=== PATIENT | male | born 1985 | race Caucasian/White ===

== ENCOUNTER 2017-06-06 19:43 | Emergency (ER) | payer BC, SELFPAY ==
[2017-06-06] VITALS (7 sets, daily range): BP systolic 105–130; BP diastolic 66–89; PULSE 82–135; RESP 17–38; TEMP 36.1; O2SAT 96–98; BMI 26.4
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
--- NOTE | 2017-06-06 20:01 | EKG12_ITS ---
Test Reason : TRAUMA Blood Pressure : / mmHG Vent. Rate : 125 BPM Atrial Rate : 125 BPM P-R Int : 132 ms QRS Dur : 096 ms QT Int : 326 ms P-R-T Axes : 078 084 064 degrees QTc Int : 470 ms Sinus tachycardia Otherwise normal ECG Confirmed by RUFINA ROMEO MD ([id number]), health editor TAMAR SLADE ([id number]) on 06/09/2017 4:08:29 PM Referred By: UGO Confirmed By:RUFINA ROMEO MD
--- NOTE | 2017-06-06 20:05 | ED.RN ---
NO OLD EKG'S IN MUSE
[2017-06-06] MEDS: 0.9% Normal Saline 1,000 ML 150 ML IV (20:07)
[2017-06-06] MEDS: fentaNYL 100 MCG/2 ML Ampul 50 MCG IV ×2 (20:07→20:58)
[2017-06-06] MEDS: Ondansetron 4 MG/2 ML Vial IV (20:08)
[2017-06-06 20:12] LABS: Absolute Lymphocyte Count 7.15 X10^3/ul (0.83-4.51); Absolute Neutrophil Count 9.6 X10^3/uL (2.0-7.7); Basophil# 0.14 X10^3/uL; Basophil% 0.7 % (0-1); Differential Indicated SCAN CRITERIA MET; Eosinophil# 0.36 X10^3/uL; Eosinophils% 1.9 % (0-5); Hematocrit 52.2 % (40-54); Hemoglobin 16.7 g/dl (13.0-16.5); Lymphocyte # 7.15 X10^3/ul (4.0); Lymphocyte % 37.5 % (19-41); Mean Corpuscular Hgb 32.4 pg (27.0-32.0); Mean Corpuscular Volume 101.2 fL (80-94); Mean Platelet Vol. 11.3 fl (6.2-12.0); Monocyte# 1.44 X10^3/uL; Monocyte% 7.6 % (0-10); Neutrophil # 9.62 X10^3/uL (2.7-7.7); Neutrophil % 50.5 % (47-70); POSITIVE COUNT NO; POSITIVE DIFFERENTIAL YES; POSITIVE MORPHOLOGY YES; Platelet Count 348 K/mm3 (150-450); RBC Distribution Width CV 12.6 % (11.6-14.6); RBC Distribution Width SD 46.9 fl (35.1-43.9); Red Blood Count 5.16 M/mm3 (4.6-6.2); White Blood Count 19.1 K/mm3 (4.4-11.0)
[2017-06-06 20:14] LABS: International Normalized Ratio 1.3; Prothrombin Time (Protime)PT. 16.4 SECONDS (11.7-14.9)
[2017-06-06 20:15] LABS: Partial Thromboplast Time 27.9 Seconds (24.1-36.2)
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
[2017-06-06 20:23] LABS: Anion Gap 35 (5-15); BUN 14 mg/dL (7-18); BUN/Creat Ratio 7.1 RATIO (10-20); Calcium,Total 9.2 mg/dL (8.5-10.1); Chloride 97 mmol/L (98-107); Creatinine, Serum 1.98 mg/dL (0.70-1.30); EST Glomerular Filtration Rate 42 mL/min (>60); Est Glom Filt Rate - Afr Amer 51 mL/min (>60); Estimated Creatinine Clearance 50.08 ml/min; Glucose 216 mg/dL (74-106); Sodium Level 137 mmol/L (136-145)
--- NOTE | 2017-06-06 20:23 | ED.RN ---
LAB CALLS WITH CRITICAL RESULT, CO2 IS 5, DR. ARIZMENDI MADE AWARE.
[2017-06-06 20:32] LABS: Differential Comment SCANNED
[2017-06-06 22:16] LABS: Color, Urine Yellow (Yellow); Glucose, Dipstick Normal (Normal); Ketone-Dipstick 5 mg/dl (Negative); Leukocyte Esterase-Dipstick Negative /ul (Negative); Nitrite-Dipstick Negative (Negative); Occult Blood-Urine 50 /ul (Negative); Protein-Dipstick 30 mg/dl (Negative); Urine Bilirubin Dipstick Negative (Negative); Urine Clarity Sl. Cloudy (Clear); Urine Urobilinogen Normal (Normal)
[2017-06-06 22:23] LABS: Amphetamine Urine VISTA POSITIVE (<1000 ng/mL); Barbiturate Urine VISTA NEGATIVE (< 200 ng/mL); Benzodiazepine Urine VISTA NEGATIVE (< 200 ng/mL); Cocaine Urine VISTA POSITIVE (< 300 ng/mL); Ecstacy Urine VISTA NEGATIVE (< 500 ng/mL); Methadone Urine VISTA NEGATIVE (< 300 ng/mL); PCP Urine VISTA NEGATIVE (< 25 ng/mL); THC Urine VISTA POSITIVE (< 50 ng/mL); Vista UDS pH Range 5
[2017-06-06 22:25] LABS: Mucous, Urine 1+ /hpf (<or=2+); Red Blood Cells-Urine 0-5 SEEN /hpf (0-5); Squamous Epithelial Cells - UA 0-5 SEEN /hpf (0-5); White Blood Cells 0-5 SEEN /hpf (0-5)
[2017-06-06 22:26] LABS: Bacteria RARE /hpf (None Seen)
== END 2017-06-06 23:31 | disposition home or self-care (01) ==
PROVIDERS: Emergency Provider Emergency Medicine; Family Provider Family Medicine; PCP Family Medicine
DX: S29.012A Strain of muscle and tendon of back wall of thorax, initial encounter (principal); S20.412A Abrasion of left back wall of thorax, initial encounter; S20.411A Abrasion of right back wall of thorax, initial encounter; N28.9 Disorder of kidney and ureter, unspecified; F19.90 Other psychoactive substance use, unspecified, uncomplicated; F10.10 Alcohol abuse, uncomplicated; Y90.2 Blood alcohol level of 40-59 mg/100 ml; V86.55XA Driver of 3- or 4- wheeled all-terrain vehicle (ATV) injured in nontraffic accident, initial encounter; Y93.89 Activity, other specified; Y92.009 Unspecified place in unspecified non-institutional (private) residence as the place of occurrence of the external cause; Y99.9 Unspecified external cause status; F03.90 Unspecified dementia, unspecified severity, without behavioral disturbance, psychotic disturbance, mood disturbance, and anxiety; F41.9 Anxiety disorder, unspecified; Z72.0 Tobacco use
CPT/HCPCS: 70450; 71260; 72125; 72128; 72131; 74177; 80048; 80307; 80320; 81001; 85025; 85610; 85730; 93005; 96361; 96374; 96375; 96376; 99285; J7030; Q9967; G0480; J2405

== ENCOUNTER 2018-06-14 13:14 | Inpatient (IN) | payer BC, SELFPAY ==
[2018-06-14] VITALS (11 sets, daily range): BP systolic 95–138; BP diastolic 68–94; PULSE 65–110; RESP 12–18; TEMP 36.8–37.6; O2SAT 94–100; BMI 23.5; BMI 24.3
--- NOTE | 2018-06-14 13:57 | ED.DCSUM_ITS ---
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 Last episode of pancreatitis 7 8 years ago. He presents with severe abdominal pain that is predominantly on the left side with 2 loose watery stools. He did not notice blood or mucus in the stool. He denies food intolerance. He does complain of thirst, dry mouth and orthostatic symptoms. He does report subjective fever. He denies headache, visual, ocular auditory symptoms. He denies cardiac respiratory symptoms. He denies dysuria, frequency, urgency or hematuria. He denies rash. Denies myalgias arthralgias. No ill contacts to his knowledge. Past Medical History - Allergies and Home Meds Allergies/Adverse Reactions: Allergies No Known Allergies Allergy (Verified 06/14/18 13:17) Primary Care Physician: Newton Herbert MD [Primary Care Provider] - Prior records reviewed: Yes Surgical History: no surgical history Lives: Spouse/ Significant Other Smoking Status: Current every day smoker Alcohol: Rare Drugs: None Review of Systems General: Reports: Chills, Fever, Subjective. Denies: Malaise, Sweats Eyes: Denies: Visual changes - bilaterally, Blurred Vision - bilaterally, Diplopia ENT: Denies: Bilateral ear pain, Rhinorrhea, Sore throat Cardiovascular: Denies: Chest pain, Palpitations Respiratory: Denies: Dyspnea, Cough, Dyspnea on exertion Gastrointestinal: Reports: Abdominal pain, Nausea, Diarrhea. Denies: Constipation, Melena, Hematochezia Genitourinary: Denies: Dysuria, Hematuria, Frequency Musculoskeletal: Denies: Myalgias, Arthralgias, Back pain, Extremity Pain Skin: Denies: Rash, Wounds Neurological: Denies: Headache, Weakness, Numbness Endocrine: Denies: Polyuria, Polydipsia Hematologic: Denies: Easy bruising Physical Exam Vital Signs/Narrative: Vital Signs Temp Pulse Resp BP Pulse Ox 06/14/18 13:15 99.6 F H 110 H 18 95/72 98 Inital Vital Signs reviewed: Yes General: Well nourished, Well developed, Acute Distress Head: Normocephalic, Atraumatic Eyes: Perrl, EOMI. Negative for: Scleral icterus ENT: No rhinorrhea, Dry mucous membranes Neck: Supple, Nontender Cardiovascular: Regular rate, Regular rhythm, No murmurs Respiratory: No distress, CTA bilaterally, Chest nontender Abdomen: No masses, Tender, Hypoactive bowel sounds, - - Abdomen is distended and tympanitic. There is no guarding or rebound tenderness.. Negative for: Nontender, Nondistended, Normal bowel sounds, Guarding, Rebound tenderness, Hyperactive bowel sounds, Hepatomegaly, Splenomegaly, Mass, Pulsatile mass, Ventral hernia Rectal: Deferred Back: Nontender, Normal Inspection Extremities: Nontender, No edema Skin: Normal color, No rash Neurological: Alert, Oriented x3, Cranial nerves II-XII grossly intact, Normal Strength, Normal Sensation Psychological: Normal affect, Normal Mood Diagnostic/Tx/Re-eval 06/14/18 15:01 Acute Abdomen Inc Chest [RAD] Stat Laboratory Results 06/14/18 14:15 Sodium 137 Potassium 3.6 Chloride 106 Carbon Dioxide 24.0 Anion Gap 7 BUN 10 Creatinine 1.18 Estim Creat Clear Calc 83.25 Est GFR (MDRD) Af Amer 91 Est GFR (MDRD) Non-Af 75 BUN/Creatinine Ratio 8.5 L Glucose 116 H Calcium 8.6 Lipase 152 Abdominal series is consistent with obstruction. Patient asked if he had a preference for surgeon. He requested an oral surgeon. Dr. Vieyra was paged. We will add on additional blood work. Patient was reexamined he does have a bulge left inguinal area with Valsalva maneuver. This does not cause him discomfort. - Medical Decision Making With history of nausea, diarrhea suspect viral illness. With no past medical history of surgery and the fact that his last watery stool was 1.5 hours ago doubt obstruction. Will treat with IV fluids, antiemetic and antispasmodic. Since she is only had 2 loose watery stools Imodium was not prescribed. Patient was reassessed at 1455. He is moaning on the examination cot. He was reexamined. His abdomen is distended tympanitic with significant tenderness. Will obtain abdominal series to evaluate for evidence of obstruction which would suggest internal band or hernia Obtained consultation with general surgery, Dr. Axel Cheung. Spoke with Dr. Vieyra at [phone]. He requested a CAT scan with p.o. and IV contrast. Disposition pending CT results. ED Disposition - Plan for ED Patient: Disposition: [facility] Diagnosis: Bowel obstruction, Reducible left inguinal hernia Referrals: Newton Herbert MD [Primary Care Provider] -
[2018-06-14] MEDS: Ondansetron 4 MG/2 ML Vial IV ×2 (14:27→19:06)
[2018-06-14] MEDS: Dicyclomine 10 MG Capsule 20 MG PO (14:27)
[2018-06-14] MEDS: 0.9% Normal Saline 1,000 ML 1000 ML IV (14:28)
[2018-06-14 14:40] LABS: Anion Gap 7 (5-15); BUN 10 mg/dL (7-18); BUN/Creat Ratio 8.5 RATIO (10-20); Calcium,Total 8.6 mg/dL (8.5-10.1); Chloride 106 mmol/L (98-107); Creatinine, Serum 1.18 mg/dL (0.70-1.30); EST Glomerular Filtration Rate 75 mL/min (>60); Est Glom Filt Rate - Afr Amer 91 mL/min (>60); Estimated Creatinine Clearance 83.25 ml/min; Glucose 116 mg/dL (74-106); Lipase 152 U/L (73-393); Potassium 3.6 mmol/L (3.5-5.1); Sodium Level 137 mmol/L (136-145)
--- NOTE | 2018-06-14 15:01 | RAD_ITS ---
STUDY: X-RAY - ACUTE ABDOMINAL SERIES REASON FOR EXAM: Male, 33 years old. Abdominal pain and distention TECHNIQUE: Single view of the chest. Supine, decubitus view(s) of the abdomen were obtained. COMPARISON: CT abdomen and pelvis 06/06/2017 FINDINGS: The lungs are clear and expanded. Normal size heart. Normal mediastinum and parvez. Normal visualized pulmonary arteries. Normal visualized aortic arch and descending thoracic aorta. Air filled small bowel loops are diffusely distended throughout the abdomen and demonstrate air-fluid levels on decubitus view suggesting a distal small bowel obstruction. There is air within normal caliber large bowel and rectum. There is a large amount of debris in the stomach. There is no pneumoperitoneum. The soft tissue structures of the abdomen and pelvis are unremarkable. Normal visualized osseous structures. RAD/Acute Abdomen Inc Chest IMPRESSION: Findings are suggestive of a distal small bowel obstruction. There is air within normal caliber large bowel and rectum noted. CT abdomen and pelvis with oral and IV contrast is recommended. Electronically Signed: Priscilla Muro, at 15:47 EDT Tel , Service support ,
--- NOTE | 2018-06-14 15:44 | CT_ITS ---
STUDY: CT ABDOMEN AND PELVIS WITH CONTRAST REASON FOR EXAM: Male, 33 years old. Distention RADIATION DOSAGE (If Supplied By Facility): CTDIvol = ( 10.93 ) mGy, DLP = ( 471.34 ) mGycm TECHNIQUE: Transaxial images were obtained from the dome of the diaphragm to the symphysis pubis without oral contrast. 100ML ml of Isovue 370 contrast was administered. Sagittal and coronal images were reconstructed. Individualized dose optimization techniques were used for this CT. COMPARISON: 06/06/2017 FINDINGS: The visualized lung bases are clear. The visualized portions of the heart and pericardium are within normal limits. There are no calcified gallstones present. The liver is within normal limits. There are no suspicious hepatic lesions. The spleen is normal in size. The pancreas is within normal limits. The adrenal glands are within normal limits. There are no renal or ureteral stones. There is no hydronephrosis. There are no focal renal lesions. Normal visualized stomach. There are distended loops of proximal and mid small bowel with collapsed loops noted distally. This is consistent with a small bowel obstruction. The transition point appears to be in the left lower quadrant (image 66 series 2). The colon is mildly dilated, as well. This may be due to ileus. The appendix is visualized and appears normal. The aorta is normal in caliber. There is a small amount of free fluid. There is no free air, fluid collection or lymphadenopathy. There are no destructive osseous lesions. CT/Abdomen/Pelvis WITH Contrast IMPRESSION: Small bowel obstruction with the transition point likely in the right lower quadrant. Mildly distended colon which is likely due to ileus. Normal appendix. Small amount of ascites. No free air or fluid collection. Electronically Signed: Tahir Hughes, at 18:02 EDT Tel , Service support ,
[2018-06-14 15:53] LABS: Absolute Lymphocyte Count 0.65 X10^3/ul (0.83-4.51); Absolute Neutrophil Count 7.6 X10^3/uL (2.0-7.7); Basophil# 0.02 X10^3/uL; Basophil% 0.2 % (0-1); Eosinophil# 0.01 X10^3/uL; Eosinophils% 0.1 % (0-5); Hematocrit 44.8 % (40-54); Lymphocyte # 0.65 X10^3/ul (4.0); Lymphocyte % 7.3 % (19-41); Mean Corp Hgb Conc 33.5 g/gl (32-36); Mean Corpuscular Hgb 30.5 pg (27.0-32.0); Mean Corpuscular Volume 91.2 fL (80-94); Mean Platelet Vol. 10.8 fl (6.2-12.0); Monocyte# 0.65 X10^3/uL; Monocyte% 7.3 % (0-10); POSITIVE COUNT NO; POSITIVE DIFFERENTIAL NO; POSITIVE MORPHOLOGY NO; Platelet Count 216 K/mm3 (150-450); RBC Distribution Width CV 12.6 % (11.6-14.6); Red Blood Count 4.91 M/mm3 (4.6-6.2); White Blood Count 8.9 K/mm3 (4.4-11.0)
[2018-06-14] MEDS: Morphine 4 MG/ML Syringe IV ×3 (16:04→22:41)
[2018-06-14 17:04] LABS: Alcohol, Blood (Medical)-Serum < 3.0 mg/dL
[2018-06-14 18:02] LABS: Amphetamine Urine VISTA POSITIVE (<1000 ng/mL); Barbiturate Urine VISTA NEGATIVE (< 200 ng/mL); Benzodiazepine Urine VISTA NEGATIVE (< 200 ng/mL); Cocaine Urine VISTA NEGATIVE (< 300 ng/mL); Ecstacy Urine VISTA NEGATIVE (< 500 ng/mL); Methadone Urine VISTA NEGATIVE (< 300 ng/mL); PCP Urine VISTA NEGATIVE (< 25 ng/mL); THC Urine VISTA POSITIVE (< 50 ng/mL); Vista UDS pH Range 5
--- NOTE | 2018-06-14 19:51 | HP.PCM_ITS ---
History of Present Illness Date of Admission: 06/14/18 Chief Complaint: abdominal pain. nausea and vomiting The patient is a 33 year old M with a one day history of abdominal pain, nausea. He presented to the [facility] ER with athe above complaints. WBC count was normal with a left shift. CT scan demonstrated a transition point the the LLQ. THe patient had a prior diagnostic laparoscopy to rule out inguinal hernia in 2003. Past Medical History Allergies No Known Allergies Allergy (Verified 06/14/18 13:17) Surgical History: - - diagnostic laparoscopy Lives: Spouse/ Significant Other Smoking Status: Current every day smoker Alcohol: Rare Drugs: Marijuana, - - methamphetamines, opiates on tox screen today, Review of Systems Constitutional: Reports: Anorexia HEENT: Denies: Head Aches, Sinus Congestion, Sinus Drainage Cardiovascular: Denies: Chest Pain, Palpitations Respiratory: Denies: Cough, Shortness of breath at rest, Sputum production Gastrointestinal: Reports: Abdominal Pain, Nausea, Vomiting Genitourinary: Denies: Dysuria Musculoskeletal: Denies: Joint Pain, Joint Tenderness Skin: Denies: Rash, Wounds Neurological: Denies: Numbness, Tingling, Focal weakness Psychiatric: Denies: Anxiety, Depression, Homicidal Ideations, Suicidal Ideations Hematologic/ Lymphatic: Denies: Easy Bruising, Easy Bleeding VTE Information - Inpt Only VTE Present on Admission: No VTE Mechan Device Prophylaxis: SCD's VTE Pharm Prophylaxis ordered?: No Patient Problems: Active and Suspected Problems Bowel obstruction (Acute) Reducible left inguinal hernia (Acute) - Physical Exam Vital Signs Temp Pulse Resp BP Pulse Ox 98.8 F 84 18 124/79 H 98 06/14/18 19:15 06/14/18 19:15 06/14/18 19:15 06/14/18 19:15 06/14/18 19:15 Oxygen Delivery Method Room Air Weight: 68.039 kg Body Mass Index (BMI) 23.5 Laboratory Tests Past 24 Hrs 06/14/18 06/14/18 06/14/18 14:15 14:15 16:30 WBC 8.9 RBC 4.91 Hgb 15.0 Hct 44.8 MCV 91.2 MCH 30.5 MCHC 33.5 RDW 12.6 RDW Differential 42.0 Plt Count 216 MPV 10.8 Immature Gran % (Auto) 0.100 Neut % (Auto) 85.0 H Lymph % (Auto) 7.3 L [place] % (Auto) 7.3 Eos % (Auto) 0.1 Baso % (Auto) 0.2 Absolute Neuts (auto) 7.6 Absolute Lymphs (auto) 0.65 L Total Counted Not Reportable Sodium 137 Potassium 3.6 Chloride 106 Carbon Dioxide 24.0 Anion Gap 7 BUN 10 Creatinine 1.18 Estim Creat Clear Calc 83.25 Est GFR (MDRD) Af Amer 91 Est GFR (MDRD) Non-Af 75 BUN/Creatinine Ratio 8.5 L Glucose 116 H Calcium 8.6 Lipase 152 Urine Opiates Screen Urine Methadone Screen Ur Barbiturates Screen Ur Phencyclidine Scrn Ur Amphetamines Screen U Methamphetamin-MDMA U Benzodiazepines Scrn Urine Cocaine Screen U Cannabinoids Screen Ur Drug Screen Comment Ethyl Alcohol < 3.0 06/14/18 17:35 WBC RBC Hgb Hct MCV MCH MCHC RDW RDW Differential Plt Count MPV Immature Gran % (Auto) Neut % (Auto) Lymph % (Auto) [place] % (Auto) Eos % (Auto) Baso % (Auto) Absolute Neuts (auto) Absolute Lymphs (auto) Total Counted Sodium Potassium Chloride Carbon Dioxide Anion Gap BUN Creatinine Estim Creat Clear Calc Est GFR (MDRD) Af Amer Est GFR (MDRD) Non-Af BUN/Creatinine Ratio Glucose Calcium Lipase Urine Opiates Screen POSITIVE H Urine Methadone Screen NEGATIVE Ur Barbiturates Screen NEGATIVE Ur Phencyclidine Scrn NEGATIVE Ur Amphetamines Screen POSITIVE H U Methamphetamin-MDMA NEGATIVE U Benzodiazepines Scrn NEGATIVE Urine Cocaine Screen NEGATIVE U Cannabinoids Screen POSITIVE H Ur Drug Screen Comment Ethyl Alcohol Assessment/Plan All Active Problems Pancreatitis, alcoholic, acute (Resolved) Bowel obstruction (Acute) Reducible left inguinal hernia (Acute) ACUTE ABDOMINAL PAIN, SMALL BOWEL WITH TRANSITION POINT LLQ I plan to perform an exploratory laparotomy with anticipation of a lysis of adhesions versus early closed loop. We discussed the possibility of bowel resection. Given his history of prior diagnostic laparoscopy for rule out inguinal hernia, the obstruction does not seem to be at a site near that procedure area and that is the concern. The patient understands the risks, benefits, possible complications and consents. He will be given zosyn and will have SCD's. We discuss his toxicology. He was given opiates prior to tox screen.
--- NOTE | 2018-06-14 20:00 | MISC_PTH ---
PATIENT: VICK RIGGINS Jr. LOC: MS3 U#:[id number] AGE/SX: 33/M ROOM: MS321 RE06/14/[address]: Dr. Axel Cheung MD : 1985 BED: 1 DIS: 06/19/2018 SPEC #: [id number] RECD: 06/15/18 07:26 STATUS: [place] REQ #: [id number] KASANDRA: 06/14/18 20:[address]: Axel Cheung DEPT: SURGICAL PATHOLOGY RECD BY: Jluis Garg ENTERED: 06/15/18 09:50 SP TYPE: MISC OTHR DR: Dr. 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 AM:yumiko 06/16/18 MICROSCOPIC DESCRIPTION Slides are reviewed. GROSS DESCRIPTION Received in fixative is one container labeled with the patient's name and designated diverticulum. The specimen consists of a saccular segment of mucosa with attached fatty tissue measuring 1.5 cm in length and 1.2 cm in diameter. Serial sections do not reveal mass lesions. The specimen is sectioned and totally submitted in one cassette. / AM:yumiko 06/15/18 TC:5 CPT: 63678
--- NOTE | 2018-06-14 21:10 | PCM.OPRPT ---
Report of Operation Date of Procedure: 06/14/18 Pre-Operative Diagnosis: small bowel obstruction -transition point in LLQ Post-Operative Diagnosis: small bowel obstruction -transition point in LLQ, small bowel diverticulum near transition Surgery/Procedure Performed:: exploratory laparotomy, small bowel diverticulectomy (? meckel's), fire suppression captain: Rachna Allison Type of Anesthesia:: General Anesthesiologist: Larissa Beatty [id number] Specimen's removed: diverticulum Drains: NG Estimated Blood Loss (mL): 100 Fluids Replaced: 1000 Description of Procedure: The patient was brought to the operating suite. Sign in was performed verifying patient, site, procedure, position, and DVT prophylaxis with SCDs. Patient received Zosyn 4.5 g antibiotic prophylaxis. Following induction of general anesthetic, the patient?s abdomen was prepped and draped in the usual fashion. Timeout was performed verifying patient, site, position. A linear incision was made in the midline above and below the umbilicus Dissection carried down to the posterior sheath. The peritoneal cavity was carefully entered and then extension of the incision was made both sharply and using electrocautery. The patient was found to have distended loops of small bowel without signs of intra-abdominal fluid or intestinal contents. The colon was packed down and retractors placed to improve visualization. Attempts to lift up the small bowel did note a degree of tenting in the left lower quadrant as expected on the CT scan. At this point, the small bowel was run from the ligament of Treitz distally. While there was no exact transition point there was a transition from more dilated bowel more collapsed bowel. This transition point seemed to be at the location as expected on the CT scan and if interested there was a diverticulum noted in this area. This was felt about 6 feet from the ileocecal valve so I doubt this was truly a Meckel's diverticulum. Nonetheless this was located near the point of transition on CT scan and seemed to be stuck to the posterior peritoneal cavity. The bowel was again run without additional obvious findings. At this point the blood supply of the diverticulum was divided with electrocautery and then the diverticulum was sharply amputated. The defect in the bowel wall was closed transversely in 2 layers using a 3-0 Vicryl suture deeply and then interrupted 3-0 silk sutures. NG tube placed by the anesthesiologist was was verified to be nicely in the stomach by palpation. . After all sponge and instrument counts were correct. PDS suture was used to close the fascia in running fashion. The subcutaneous tissues were irrigated skin was closed with bryson. Dressing was applied. - Admit VTE Documentation VTE Present on Admission: No VTE Mechan Device Prophylaxis: SCD's VTE Pharm Prophylaxis ordered?: No
[2018-06-15 00:10] VITALS: BP 112/72; PULSE 70; RESP 16; TEMP 37.2; O2SAT 96
[2018-06-15 01:59] VITALS: BP 118/68; PULSE 70; RESP 16; TEMP 37.1; O2SAT 95
[2018-06-15] MEDS: Morphine 4 MG/ML Syringe IV ×8 (03:10→22:53)
[2018-06-15] MEDS: 0.9% NaCl Peripheral Flush Adult/Peds IV ×5 (03:10→17:59)
[2018-06-15] MEDS: Lactated Ringers 1,000 ML 100 ML IV ×2 (03:20→16:01)
--- NOTE | 2018-06-15 05:10 | NURSING ---
pt refusing to get out of bed or to ambulate. Wants NG tube removed. Pt was educated on the importance of getting out of bed and ambulating. also educated on the need for the NG tube. Pt voiced understanding.
[2018-06-15 06:00] LABS: Absolute Lymphocyte Count 0.73 X10^3/ul (0.83-4.51); Absolute Neutrophil Count 13.2 X10^3/uL (2.0-7.7); Basophil# 0.01 X10^3/uL; Basophil% 0.1 % (0-1); Eosinophil# 0.01 X10^3/uL; Eosinophils% 0.1 % (0-5); Hematocrit 39.4 % (40-54); Hemoglobin 12.9 g/dl (13.0-16.5); Lymphocyte # 0.73 X10^3/ul (4.0); Lymphocyte % 5.1 % (19-41); Mean Corp Hgb Conc 32.7 g/gl (32-36); Mean Corpuscular Hgb 30.4 pg (27.0-32.0); Mean Corpuscular Volume 92.7 fL (80-94); Mean Platelet Vol. 10.6 fl (6.2-12.0); Monocyte% 2.8 % (0-10); Neutrophil % 91.8 % (47-70); Platelet Count 215 K/mm3 (150-450); RBC Distribution Width CV 12.6 % (11.6-14.6); RBC Distribution Width SD 42.7 fl (35.1-43.9); Red Blood Count 4.25 M/mm3 (4.6-6.2); White Blood Count 14.4 K/mm3 (4.4-11.0)
[2018-06-15 06:18] LABS: POSITIVE COUNT NO; POSITIVE DIFFERENTIAL NO; POSITIVE MORPHOLOGY NO
[2018-06-15 06:44] LABS: ALB/GLOB Ratio 0.9 RATIO (0.9-2.4); AST(SGOT) 13 U/L (15-37); Alanine Aminotransfer ALT/SGPT 14 U/L (16-61); Albumin, Serum 2.9 g/dL (3.2-5.0); Alkaline Phosphatase 47 U/L (45-117); Anion Gap 7 (5-15); BUN 10 mg/dL (7-18); BUN/Creat Ratio 8.3 RATIO (10-20); Calcium,Total 7.9 mg/dL (8.5-10.1); Chloride 110 mmol/L (98-107); EST Glomerular Filtration Rate 74 mL/min (>60); Est Glom Filt Rate - Afr Amer 90 mL/min (>60); Estimated Creatinine Clearance 79.01 ml/min; Globulin 3.3 g/dL (2.2-4.2); Glucose 131 mg/dL (74-106); Potassium 4.1 mmol/L (3.5-5.1); Protein, Total 6.2 g/dL (6.4-8.2); Sodium Level 143 mmol/L (136-145)
--- NOTE | 2018-06-15 07:43 | NURSING ---
Carolina RN on casino shift manager reported that pt has not voided since 1800 last evening 06/14 and was bladder scanned once at 0330 by Carolina for 250ml but not voided since. Carolina bladder scanned him at 0730 this morning for 482ml. Per report pt has also refused to sit in chair and walk in room or delatorre.
[2018-06-15 08:19] VITALS: BP 107/59; PULSE 84; RESP 18; TEMP 36.8; O2SAT 99
--- NOTE | 2018-06-15 09:30 | PCM.PN.SRG ---
Patient Problems: Active and Suspected Problems Bowel obstruction (Acute) Reducible left inguinal hernia (Acute) Subjective: incisional pain, - Physical Exam General: Alert, Oriented x3, Cooperative Lungs: Clear to auscultation, Normal air movement Cardiovascular: Regular rate, No murmurs Abdomen: Bowel Sounds Not Present, Tender - at incision Vital Signs Temp Pulse Resp BP Pulse Ox 98.3 F 84 18 107/59 L 99 06/15/18 08:19 06/15/18 08:19 06/15/18 08:19 06/15/18 08:19 06/15/18 08:19 Oxygen Delivery Method Room Air Weight: 70.3 kg Body Mass Index (BMI) 24.3 Intake and Output for Last 24 Hours 06/13/18 06/14/18 06/15/18 23:59 23:59 23:59 Intake Total 1500 / 1500 766 / 766 Output Total 100 / 100 Balance 1500 / 1500 666 / 666 Laboratory Tests Past 24 Hrs 06/14/18 06/14/18 06/14/18 14:15 14:15 16:30 WBC 8.9 RBC 4.91 Hgb 15.0 Hct 44.8 MCV 91.2 MCH 30.5 MCHC 33.5 RDW 12.6 RDW Differential 42.0 Plt Count 216 MPV 10.8 Immature Gran % (Auto) 0.100 Neut % (Auto) 85.0 H Lymph % (Auto) 7.3 L [place] % (Auto) 7.3 Eos % (Auto) 0.1 Baso % (Auto) 0.2 Absolute Neuts (auto) 7.6 Absolute Lymphs (auto) 0.65 L Total Counted Not Reportable Sodium 137 Potassium 3.6 Chloride 106 Carbon Dioxide 24.0 Anion Gap 7 BUN 10 Creatinine 1.18 Estim Creat Clear Calc 83.25 Est GFR (MDRD) Af Amer 91 Est GFR (MDRD) Non-Af 75 BUN/Creatinine Ratio 8.5 L Glucose 116 H Calcium 8.6 Total Bilirubin AST ALT Alkaline Phosphatase Total Protein Albumin Globulin Albumin/Globulin Ratio Lipase 152 Urine Opiates Screen Urine Methadone Screen Ur Barbiturates Screen Ur Phencyclidine Scrn Ur Amphetamines Screen U Methamphetamin-MDMA U Benzodiazepines Scrn Urine Cocaine Screen U Cannabinoids Screen Ur Drug Screen Comment Ethyl Alcohol < 3.0 06/14/18 06/15/18 06/15/18 17:35 05:10 05:10 WBC 14.4 H RBC 4.25 L Hgb 12.9 L Hct 39.4 L MCV 92.7 MCH 30.4 MCHC 32.7 RDW 12.6 RDW Differential 42.7 Plt Count 215 MPV 10.6 Immature Gran % (Auto) 0.100 Neut % (Auto) 91.8 H Lymph % (Auto) 5.1 L [place] % (Auto) 2.8 Eos % (Auto) 0.1 Baso % (Auto) 0.1 Absolute Neuts (auto) 13.2 H Absolute Lymphs (auto) 0.73 L Total Counted Not Reportable Sodium 143 Potassium 4.1 Chloride 110 H Carbon Dioxide 26.0 Anion Gap 7 BUN 10 Creatinine 1.20 Estim Creat Clear Calc 79.01 Est GFR (MDRD) Af Amer 90 Est GFR (MDRD) Non-Af 74 BUN/Creatinine Ratio 8.3 L Glucose 131 H Calcium 7.9 L Total Bilirubin 0.30 AST 13 L ALT 14 L Alkaline Phosphatase 47 Total Protein 6.2 L Albumin 2.9 L Globulin 3.3 Albumin/Globulin Ratio 0.9 Lipase Urine Opiates Screen POSITIVE H Urine Methadone Screen NEGATIVE Ur Barbiturates Screen NEGATIVE Ur Phencyclidine Scrn NEGATIVE Ur Amphetamines Screen POSITIVE H U Methamphetamin-MDMA NEGATIVE U Benzodiazepines Scrn NEGATIVE Urine Cocaine Screen NEGATIVE U Cannabinoids Screen POSITIVE H Ur Drug Screen Comment Ethyl Alcohol Medical Necessity - Tobacco Use Smoking Status: Current every day smoker Assessment/Plan All Active Problems Pancreatitis, alcoholic, acute (Resolved) Bowel obstruction (Acute) Reducible left inguinal hernia (Acute) ACUTE ABDOMINAL PAIN, SMALL BOWEL WITH TRANSITION POINT LLQ - POD #1 s/p EXPLORATORY LAPAROTOMY, SMALL BOWL DIVERTICULECTOMY Transition point seemed to be at a location with a small bowel diverticulum at the site anticipated from Ct scan, likely diverticulum stuck to retroperitoneum at psoas. diverticulectomy with 2 layer hand sewn repair. patient with absent bowel sounds. NG to LIS We discuss his toxicology. He was given opiates prior to tox screen. He smokes, positive for marijuana and amphetamines. Patient given a nicotine patch. will encourage incentive spirometry and ambulation
--- NOTE | 2018-06-15 13:33 | NURSING ---
Pt voided approximately 25cc this morning at 0830 after encouraged to try to urinate. Pt then walked in the delatorre approximately one hour later. Teaching given regarding sitting up in chair and walking delatorre at least three times a day. After walking in delatorre, pt voided in toilet but was not measured. This nurse then bladder scanned pt for 641ml. Pt stated he felt like he could void again. pt took 30 min to void but did end up voiding 800ml. This nurse then bladder scanned him again and got zero.
--- NOTE | 2018-06-15 13:37 | CASEMGMT ---
KEYANA GARCIA assessment: Face to Face with patient for initial transition planning/care coordination assessment. KEYANA GARCIA introduced self and role at [facility], pt voices understanding and consents to assessment at this time. Pt is sitting up in bed with NG tube in place and eating ice chips at this time. Pt is in no distress. Pt is A/Ox4 at this time and answers all questions appropriately at this time. Care providers, pharmacy, and demographics verified at this time. PCP: [facility] Specialists: Pt states currently has no specialists. Preferred [facility]acy: [facility] Insurance: [place] Prescription Benefit: [place] Living Will/HPOA: Pt states does not have LW/HPOA and declines info at this time. LNOK: Nat Menendez, Living Arrangements: Pt states lives with at home and states no concerns at home at this time. Pt states is independent with ADL's. Transportation: Pt states drives self and states no transportation concerns at this time. DME/HHC: Pt states no current DME or need for any at this time. Pt states no hx of HHC or SNF in the past. Pt states no concerns with going home at time of discharge. 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 Pt states smokes a pack of cigarettes daily and also smokes marijuana daily. Pt states does not drink ETOH. Pt states no further concerns/needs at this time. CM to follow for any further discharge planning/needs. Advised pt to ask for CM if any further questions/concerns/needs arise, voices understanding. Plan: [place] KEYANA GARCIA
[2018-06-15 16:03] VITALS: BP 117/57; PULSE 75; RESP 16; TEMP 37.1; O2SAT 100
[2018-06-15 19:55] VITALS: BP 126/82; PULSE 63; RESP 16; TEMP 36.9; O2SAT 100
[2018-06-16 01:53] VITALS: BP 121/65; PULSE 64; RESP 14; TEMP 37; O2SAT 94
[2018-06-16] MEDS: Lactated Ringers 1,000 ML 100 ML IV ×3 (01:56→19:59)
[2018-06-16] MEDS: Morphine 4 MG/ML Syringe IV ×12 (01:56→22:02)
[2018-06-16 08:54] VITALS: BP 123/77; PULSE 75; RESP 14; TEMP 36.9; O2SAT 94
[2018-06-16 09:00] VITALS: O2SAT 94
--- NOTE | 2018-06-16 09:05 | PCM.PN.SRG ---
Patient Problems: Active and Suspected Problems Bowel obstruction (Acute) Reducible left inguinal hernia (Acute) Subjective: difficulty urinating yesterday, questions hearing few bowel sounds - Physical Exam General: Alert, Oriented x3, Cooperative Lungs: Clear to auscultation, Normal air movement Cardiovascular: Regular rate, No murmurs Abdomen: Hypoactive Bowel Sounds, Tender - at incisions, - - NG tube with turbid fluid Vital Signs Temp Pulse Resp BP Pulse Ox 98.5 F 75 14 123/77 H 94 06/16/18 08:54 06/16/18 08:54 06/16/18 08:54 06/16/18 08:54 06/16/18 08:54 Oxygen Delivery Method Room Air Weight: 70.3 kg Body Mass Index (BMI) 24.3 Intake and Output for Last 24 Hours 06/14/18 06/15/18 06/16/18 23:59 23:59 23:59 Intake Total 1500 / 1500 2312 / 2312 730 / 730 Output Total 2825 / 2825 1300 / 1300 Balance 1500 / 1500 -513 / -513 -570 / -570 Medical Necessity - Tobacco Use Smoking Status: Current every day smoker Assessment/Plan All Active Problems Pancreatitis, alcoholic, acute (Resolved) Bowel obstruction (Acute) Reducible left inguinal hernia (Acute) ACUTE ABDOMINAL PAIN, SMALL BOWEL WITH TRANSITION POINT LLQ - POD #2 s/p EXPLORATORY LAPAROTOMY, SMALL BOWL DIVERTICULECTOMY Transition point seemed to be at a location with a small bowel diverticulum at the site anticipated from Ct scan, likely diverticulum stuck to retroperitoneum at psoas. diverticulectomy with 2 layer hand sewn repair. patient with absent bowel sounds. NG to LIS-informed patient will like to be few more days before the NG tube can be removed given the degree of bowel work performed. Unable to urinate-Vela catheter placed yesterday. Will remove Vela today for trial. If Vela is replaced will leave until NG tube removed and able to start Flomax. We discuss his toxicology. He was given opiates prior to tox screen. He smokes, positive for marijuana and amphetamines. Patient given a nicotine patch. will encourage incentive spirometry and ambulation
[2018-06-16 14:30] VITALS: BP 134/83; PULSE 80; RESP 14; TEMP 36.8; O2SAT 95
[2018-06-16 14:40] VITALS: RESP 14; O2SAT 95
[2018-06-16 21:00] VITALS: BP 127/81; PULSE 105; RESP 16; TEMP 36.7; O2SAT 95
[2018-06-17] VITALS (7 sets, daily range): BP systolic 122–139; BP diastolic 76–92; PULSE 87–118; RESP 15–16; TEMP 36.6–38.5; O2SAT 95–98
[2018-06-17] MEDS: Morphine 4 MG/ML Syringe IV ×10 (01:02→20:49)
[2018-06-17] MEDS: Lactated Ringers 1,000 ML 100 ML IV ×3 (05:09→23:07)
[2018-06-17] MEDS: 0.9% NaCl Peripheral Flush Adult/Peds IV ×6 (10:02→22:41)
--- NOTE | 2018-06-17 10:56 | CASEMGMT ---
SW met w/pt briefly as SW was informed by RN of pt's prior and possibly current drug use. Pt has an NG tube in, did not open eyes while SW spoke w/him, appears to be uncomfortable. Pt states if he passes gas they will take the tube out, and he would like it out, states is hungry. SW asked pt about his drug/alcohol history. Pt states he does not drink, not using drugs. Pt states he smokes weed and that's it. Pt declined referral for substance abuse, declines that he has any type of drug abuse issue at this time. SW is available should any needs arise. UMM Stringer, MOTOR RUNNER
--- NOTE | 2018-06-17 14:43 | PCM.PN.SRG ---
Patient Problems: Active and Suspected Problems Bowel obstruction (Acute) Reducible left inguinal hernia (Acute) Subjective: scant flatus? - Physical Exam General: Alert, Oriented x3 Lungs: Clear to auscultation, Normal air movement Cardiovascular: Regular rate, No murmurs Abdomen: Soft, Non Tender, Hypoactive Bowel Sounds Vital Signs Temp Pulse Resp BP Pulse Ox 98.7 F 90 16 139/92 H 98 06/17/18 13:43 06/17/18 13:44 06/17/18 13:43 06/17/18 13:43 06/17/18 13:43 Oxygen Delivery Method Room Air Weight: 70.3 kg Body Mass Index (BMI) 24.3 Intake and Output for Last 24 Hours 06/15/18 06/16/18 06/17/18 23:59 23:59 23:59 Intake Total 2312 / 2312 2107 / 2107 2498 / 2498 Output Total 2825 / 2825 3610 / 3610 2875 / 2875 Balance -513 / -513 -1503 / -1503 -377 / -377 Medical Necessity - Tobacco Use Smoking Status: Current every day smoker Assessment/Plan All Active Problems Pancreatitis, alcoholic, acute (Resolved) Bowel obstruction (Acute) Reducible left inguinal hernia (Acute) ACUTE ABDOMINAL PAIN, SMALL BOWEL WITH TRANSITION POINT LLQ - POD #3 s/p EXPLORATORY LAPAROTOMY, SMALL BOWL DIVERTICULECTOMY Transition point seemed to be at a location with a small bowel diverticulum at the site anticipated from Ct scan, likely diverticulum stuck to retroperitoneum at psoas. diverticulectomy with 2 layer hand sewn repair. patient with absent bowel sounds. NG to LIS-informed patient will like to be few more days before the NG tube can be removed given the degree of bowel work performed. Unable to urinate-Vela catheter placed yesterday. Will remove Vela today for trial. If Vela is replaced will leave until NG tube removed and able to start Flomax. We discuss his toxicology. He was given opiates prior to tox screen. He smokes, positive for marijuana and amphetamines. Patient given a nicotine patch. will encourage incentive spirometry and ambulation
--- NOTE | 2018-06-17 18:25 | NURSING ---
Pt resting in bed, temp climbing and hr over 100, pt was instructed to ambulated. Verbalized,ok and made no effort to get of bed. Ng is clamped for now. and father at bedside.
[2018-06-17] MEDS: Morphine 2 MG/ML Syringe IV (22:40)
[2018-06-17] MEDS: Acetaminophen 650 MG/20 ML UDC NG (23:07)
[2018-06-18 01:34] VITALS: BP 111/66; PULSE 97; RESP 18; TEMP 37.3; O2SAT 96
[2018-06-18] MEDS: Morphine 2 MG/ML Syringe IV ×3 (02:16→07:05)
[2018-06-18] MEDS: 0.9% NaCl Peripheral Flush Adult/Peds IV ×3 (07:05→23:47)
[2018-06-18] MEDS: Acetaminophen 650 MG/20 ML UDC NG (07:37)
[2018-06-18 07:39] VITALS: BP 136/89; PULSE 122; RESP 16; TEMP 38.3; O2SAT 93
[2018-06-18 07:42] VITALS: PULSE 123
--- NOTE | 2018-06-18 08:06 | RAD_ITS ---
STUDY: X-RAY CHEST REASON FOR EXAM: Male, 33 years old. Fever. TECHNIQUE: PA and lateral views of the chest. COMPARISON: Lateral chest x-ray included with acute abdomen series June 14, 2018; CT chest with IV contrast June 06, 2017. FINDINGS: A nasogastric tube is present, its distal end in the collapsed stomach. There is subsegmental atelectasis or infiltrate in the posteromedial right lung base. The left lung is clear and expanded. There is no demonstrated pleural abnormality. Normal size heart. Normal mediastinum and parvez. Normal visualized pulmonary arteries. Normal visualized aortic arch and descending thoracic aorta. Normal visualized thoracic spine. Normal visualized ribs, clavicles, and shoulders. There is no demonstrated abnormality of the visualized soft tissue structures of the upper abdomen. RAD/Chest PA and Lateral IMPRESSION: Posteromedial right basilar atelectasis or infection. Electronically Signed: Ryan Andino MD at 12:18 EDT , Service support ,
--- NOTE | 2018-06-18 08:34 | PCM.PN.SRG ---
Subjective: Complaint of abdominal soreness, only passing small amounts of flatus, no bowel movement - Physical Exam General: Alert, Oriented x3 Oral: Moist Mucosa Neck: Supple Lungs: Normal air movement Abdomen: Soft, - - dressing intact, no seepage noted Vital Signs Temp Pulse Resp BP Pulse Ox 100.9 F H 123 H 16 136/89 H 93 06/18/18 07:39 06/18/18 07:42 06/18/18 07:39 06/18/18 07:39 06/18/18 07:39 Oxygen Delivery Method Room Air Weight: 70.3 kg Body Mass Index (BMI) 24.3 Intake and Output for Last 24 Hours 06/16/18 06/17/18 06/18/18 23:59 23:59 23:59 Intake Total 2107 / 2107 3432 / 3432 1190 / 1190 Output Total 3610 / 3610 3725 / 3725 Balance -1503 / -1503 -293 / -293 1190 / 1190 Medical Necessity - Tobacco Use Smoking Status: Current every day smoker Assessment/Plan All Active Problems Pancreatitis, alcoholic, acute (Resolved) Bowel obstruction (Acute) Reducible left inguinal hernia (Acute) Impression: status post laparotomy, lysis of adhesions Plan: continue supportive care - clamp NG tube If patient passes normal amounts of flatus, can d/c NG tube encourage ambulation and incentive spirometry
[2018-06-18 09:06] VITALS: BP 115/72; PULSE 101; RESP 16; TEMP 36.8; O2SAT 96
--- NOTE | 2018-06-18 09:46 | NURSING ---
ambulating in delatorre
[2018-06-18] MEDS: Lactated Ringers 1,000 ML 100 ML IV ×2 (11:40→20:57)
[2018-06-18 14:39] VITALS: BP 128/85; PULSE 111; RESP 16; TEMP 36.9; O2SAT 96
[2018-06-18] MEDS: Ketorolac 30 MG/ML Syringe IV ×2 (17:03→23:45)
[2018-06-18 20:57] VITALS: BP 131/82; PULSE 85; RESP 16; TEMP 37.7; O2SAT 97
[2018-06-18] MEDS: Acetaminophen 650 MG/20 ML UDC PO (21:09)
[2018-06-19 02:49] VITALS: BP 98/61; PULSE 66; RESP 16; TEMP 36.7; O2SAT 96
[2018-06-19] MEDS: Ketorolac 30 MG/ML Syringe IV (05:48)
[2018-06-19] MEDS: Acetaminophen 650 MG/20 ML UDC PO (05:49)
[2018-06-19] MEDS: Lactated Ringers 1,000 ML 100 ML IV (05:55)
[2018-06-19 09:40] VITALS: BP 120/75; PULSE 68; RESP 16; TEMP 37.1; O2SAT 98
--- NOTE | 2018-06-19 10:45 | PCM.PN.SRG ---
Subjective: patient passing flatus well, d/c'd NG tube last night, tolerated regular diet today ready to go home - Physical Exam General: Oriented x3 Oral: Moist Mucosa Neck: Supple Lungs: Normal air movement Abdomen: Bowel Sounds Present, Soft, - - Incision is clean dry and intact Vital Signs Temp Pulse Resp BP Pulse Ox 98.7 F 68 16 120/75 98 06/19/18 09:40 06/19/18 09:40 06/19/18 09:40 06/19/18 09:40 06/19/18 09:40 Oxygen Delivery Method Room Air Weight: 70.3 kg Body Mass Index (BMI) 24.3 Intake and Output for Last 24 Hours 06/17/18 06/18/18 06/19/18 23:59 23:59 23:59 Intake Total 3432 / 3432 3715 / 3715 909 / 909 Output Total 3725 / 3725 Balance -293 / -293 3715 / 3715 909 / 909 Medical Necessity - Tobacco Use Smoking Status: Current every day smoker Assessment/Plan All Active Problems Pancreatitis, alcoholic, acute (Resolved) Bowel obstruction (Acute) Reducible left inguinal hernia (Acute) Impression: status post laparotomy, lysis of adhesions Plan: NG tube d\c'd tolerating diet D/C to home
--- NOTE | 2018-06-19 10:47 | DCINST_ITS ---
Discharge Diet: No Restrictions - drink plenty of fluits Discharge Activity: Return to Normal Activity, May not drive while taking narcot ic pain medications. Lifting Restrictions: no lifting/pulling/pushing greater than 20 pounds for 4-6 weeks Call your doctor if your incision/area has: Continuous Slow Oozing, Foul Smelling Discharge Call your doctor if you observe: Fever of 101 or Higher Additional Dressing/Incision Instructions:: leave dressing in place. shower only with covering over dressing to prevent it from getting wet. do not soak - no tub baths/swimming Allergies/Adverse Reactions: Allergies No Known Allergies Allergy (Verified 06/14/18 13:17) Medications to take at Discharge Oxycodone [Oxyir] 5 mg PO Q8H PRN PRN 5 Days #15 tab 06/19/18 The following prescriptions were given: Oxycodone [Oxyir] 5 mg PO Q8H PRN PRN 5 Days #15 tab PRN Reason: Severe Pain (6-10/10) Primary Care Physician: Newton Herbert MD [Primary Care Provider] - Test Results: Test results from this visit will be discussed in further detail at your follow- up appointment, if applicable. Please Follow Up With: Axel Cheung MD - When: to be seen on June 23
[2018-06-19 11:41] VITALS: BP 124/82; PULSE 80; RESP 16; TEMP 37.1; O2SAT 98
--- NOTE | 2018-06-20 15:59 | CASEMGMT ---
KEYANA GARCIA Discharge Follow-up Phone Call: IRMA: Mercedes Strata: 9 Call Date: 06/20/18 Discharge Date: 06/19/18 Time of Call: 1600 Duration: 3 min Admitting Diagnosis: Small Bowel Obstruction RN RADHA completed follow-up phone call after recent hospitalization. answer and states that patient is doing well. No questions regarding discharge instructions. Patient was able to fill meds without any issues. is calling to schedule follow-up appointments.
--- NOTE | 2018-07-08 11:06 | DS.PCM_ITS ---
Discharge Summary Date of Admission: 06/14/18 Date of Discharge: 06/19/18 Summary: 33 y/o WM presented to [facility] with bowel obstruction. Underwent surgery by Dr. Cheung on 06/14/18 of exploratory laparotomy and lysis of adhesions. 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 No complications noted in surgery. Postoperative recovery was slow - awaiting return of bowel function (patient with history of illicit drug use) Evidence of bowel function return on POD#4, and wanted to stay another day. Discharged to home on POD#5, tolerating regular diet, having had a bowel movement, and no evidence of infection. - Physical Exam Vital Signs Temp Pulse Resp BP Pulse Ox 98.7 F 80 16 124/82 H 98 06/19/18 11:41 06/19/18 11:41 06/19/18 11:41 06/19/18 11:41 06/19/18 11:41 Oxygen Delivery Method Room Air Weight: 70.3 kg Body Mass Index (BMI) 24.3
== END 2018-06-19 11:58 | disposition home or self-care (01) | DRG 331 ==
LOC: ED 15:50 → SDC 19:01 → AC 19:03 → MS2 21:35 → SDC 21:35 → MS2 06-15 09:34 → MS3 06-18 16:32
PROVIDERS: Admitting Provider Surgery; Emergency Provider Emergency Medicine; Family Provider Family Medicine; PCP Family Medicine; Visit Provider Surgery
PROC: 0DB80ZZ Excision of Small Intestine, Open Approach (ICD-10-PCS; CPT 49000; principal; 2018-06-14 20:00)
DX: K57.10 Diverticulosis of small intestine without perforation or abscess without bleeding (principal); K40.90 Unilateral inguinal hernia, without obstruction or gangrene, not specified as recurrent
CPT/HCPCS: 36415; 71046; 74022; 74177; 80048; 80053; 80307; 80320; 83690; 85025; 88304; 88307; 99282; J7030; J7050; J7120; Q9967; A4216; G0480; J2405

== ENCOUNTER 2020-05-07 13:24 | Emergency (ER) | payer BC, SELFPAY ==
[2018-06-14 22:05] VITALS: BMI 24.3
[2020-05-07 13:26] VITALS: BP 125/74; PULSE 114; RESP 16; TEMP 37.1; O2SAT 97; BMI 23.3
--- NOTE | 2020-05-07 13:26 | CM.ED ---
Social Work Telephone call from Chloe Layton. Chloe reports to have already completed assessment in the community with patient and to have sent patient to the ED for medical clearance for psychiatric placement. Chloe to fax crisis assessment. Medical team updated on above. Social Work to continue to follow as needed. Cathy COLLINS, UMM
--- NOTE | 2020-05-07 13:45 | ED.DCSUM_ITS ---
- ER Visit Summary Date of Service: 05/07/20 Chief Complaint: Depressed and suicidal ideation History of Present Illness: The patient is a 35 M no significant past medical history other than the prior small bowel obstruction for which care of partial resection. Patient states he had a history depression in the past he has never been institutionalized or hospitalized for his never had an actual attempt. She has had some marital issues currently going on at home. He has been more depressed and has a plan to either overdose or hang himself. Today called the suicide hotline who encouraged him to come to the emergency department to be evaluated. He does not have a psychiatrist that he is seeing nor is he under any mental health care currently. Physical Examination: Well-appearing 35-year-old male vital signs stable afebrile. He does not look septic or toxic there is no smell of alcohol no obvious signs of toxidrome. He is awake alert acting appropriate. He is forthcoming with answers. He is currently neither violent nor acting out. H EENT exam unremarkable. Neck nontender. No lymphadenopathy. No signs of trauma. Lungs clear to auscultation bilaterally. Heart regular rhythm no murmur. Abdomen soft nontender normal bowel sounds no peritoneal signs. Patient is moving all 4 extremities. There is no track rivera or signs of trauma. Back nontender. Neurologically is awake and alert with no focal motor deficits. Test Results: BC white count of 10 hemoglobin 14. Chemistries unremarkable except creatinine 1.41. Normal gap. Alcohol normal. Tox screen and Covid pending. Repeat exam patient is doing well resting comfortably. He did request something for his nerves and he was given 1 mg p.o. of Ativan. Emergency Department Course and Treatment: Medically the patient is cleared he is suicidal and depressed. He does have a plan. Screening labs to be obtained. Crisis will be consulted for placement. Treatment Plan: Given the patient is medically cleared. Awaiting crisis for placement. Disposition: To the psychiatric facility Impression: Acute depression with suicidal ideation Likely cleared by the emergency department. This note was generated with [employer] dictation software. It may contain incorrect words, spelling, and punctuation that were not noted in review of the chart prior to signing ED Disposition - Plan for ED Patient: Referrals: Newton Herbert MD [Primary Care Provider] -
[2020-05-07 13:58] LABS: Absolute Lymphocyte Count 1.95 X10^3/uL (0.83-4.51); Absolute Neutrophil Count 7.8 X10^3/uL (2.0-7.7); Basophil# 0.07 X10^3/uL; Basophil% 0.7 % (0-1); Eosinophil# 0.03 X10^3/uL; Eosinophils% 0.3 % (0-5); Hematocrit 43.6 % (40-54); Hemoglobin 14.7 g/dL (13.0-16.5); Lymphocyte # 1.95 X10^3/ul (4.0); Mean Corp Hgb Conc 33.7 g/dL (32-36); Mean Platelet Vol. 10.1 fl (6.2-12.0); Monocyte# 0.44 X10^3/uL; Monocyte% 4.3 % (0-10); NRBC Flagged by Analyzer 0 % (0-5); Neutrophil # 7.75 X10^3/uL (2.7-7.7); Neutrophil % 75.5 % (47-70); Platelet Count 288 K/mm3 (150-450); RBC Distribution Width CV 11.8 % (11.6-14.6); Red Blood Count 4.74 M/mm3 (4.6-6.2); White Blood Count 10.3 K/mm3 (4.4-11.0)
[2020-05-07 14:04] LABS: Anion Gap 4 (5-15); BUN 12 mg/dL (7-18); BUN/Creat Ratio 8.5 RATIO (10-20); Calcium,Total 9.1 mg/dL (8.5-10.1); Chloride 105 mmol/L (98-107); Creatinine, Serum 1.41 mg/dL (0.70-1.30); EST Glomerular Filtration Rate 61 mL/min (>60); Est Glom Filt Rate - Afr Amer 73 mL/min (>60); Estimated Creatinine Clearance 68.37 ml/min; Glucose 129 mg/dL (74-106); Potassium 3.5 mmol/L (3.5-5.1); Sodium Level 138 mmol/L (136-145)
[2020-05-07 14:27] LABS: Alcohol, Blood (Medical)-Serum < 3.0 mg/dL
[2020-05-07 14:50] LABS: Amphetamine Urine VISTA POSITIVE (<1000 ng/mL); Barbiturate Urine VISTA NEGATIVE (< 200 ng/mL); Benzodiazepine Urine VISTA NEGATIVE (< 200 ng/mL); Cocaine Urine VISTA NEGATIVE (< 300 ng/mL); Ecstacy Urine VISTA NEGATIVE (< 500 ng/mL); Methadone Urine VISTA NEGATIVE (< 300 ng/mL); PCP Urine VISTA NEGATIVE (< 25 ng/mL); THC Urine VISTA POSITIVE (< 50 ng/mL); Vista UDS pH Range 6
--- NOTE | 2020-05-07 15:04 | CM.ED ---
Social Work Medical Chart faxed to Crisis for placement. Pending COVID-19 results, will fax when obtained. Cathy Eugene MSW, [employer]
[2020-05-07 15:08] VITALS: RESP 16
[2020-05-07] MEDS: LORazepam 1 MG Tablet PO ×2 (15:57→19:25)
[2020-05-07 16:33] VITALS: BP 122/88; PULSE 99; RESP 18; TEMP 37.2; O2SAT 100
--- NOTE | 2020-05-07 17:54 | NURSING ---
ACCEPTED AT [facility]
--- NOTE | 2020-05-07 18:02 | NURSING ---
CALLED [facility], ETA IS 90 MIN TO 2 HRS
[2020-05-07 18:18] VITALS: RESP 16
[2020-05-07 19:00] VITALS: RESP 18
[2020-05-07 20:11] VITALS: RESP 16
== END 2020-05-07 21:26 ==
LOC: ED 14:05
PROVIDERS: Emergency Provider Emergency Medicine; PCP Family Medicine
DX: R45.851 Suicidal ideations (principal); F32.9 Major depressive disorder, single episode, unspecified; Z72.0 Tobacco use
CPT/HCPCS: 36415; 80048; 80307; 82077; 85025; 87426; 99285

== ENCOUNTER 2020-07-18 23:40 | Emergency (ER) | payer BC, SELFPAY ==
[2020-07-18 23:41] VITALS: BP 124/79; PULSE 71; RESP 16; TEMP 36.1; O2SAT 98; BMI 24.3
--- NOTE | 2020-07-19 00:03 | ED.DCSUM_ITS ---
History of Present Illness Chief Complaint: Ear Problem Informant: Patient Narrative: 35-year-old male with past medical history of depression presents with abdominal pain, nausea, vomiting, ear pain. States that he has had pain in his right ear over the past 2 weeks. States it is aching in nature. Denies any fever or chills. States he has not been eating and drinking well. States he has felt nauseous. Has been having intermittent aching abdominal pain. Patient had one episode of vomiting today. Nonbloody nonbilious. States he has a lot of stress currently because he is going through divorce. Denies any drugs or alcohol. Patient is a current smoker. Past Medical History - Allergies and Home Meds Allergies/Adverse Reactions: Allergies No Known Allergies Allergy (Verified 07/18/20 23:58) Primary Care Physician: Newton Herbert MD [Primary Care Provider] - Prior records reviewed: Yes Past Medical History: - - Depression Surgical History: - - diagnostic laparoscopy Lives: Alone Smoking Status: Current every day smoker Alcohol: None Drugs: None Review of Systems General: Denies: Chills, Fever, Sweats Eyes: Denies: Visual changes - bilaterally, Diplopia ENT: Reports: Right ear pain. Denies: Rhinorrhea, Sore throat Cardiovascular: Denies: Chest pain, Palpitations Respiratory: Denies: Dyspnea, Cough, Dyspnea on exertion Gastrointestinal: Reports: Abdominal pain, Nausea, Vomiting. Denies: Diarrhea, Melena, Hematochezia Genitourinary: Denies: Dysuria, Hematuria, Frequency Musculoskeletal: Denies: Back pain, Extremity Pain Skin: Denies: Rash, Wounds Neurological: Denies: Headache, Weakness, Numbness Physical Exam Vital Signs/Narrative: Vital Signs Temp Pulse Resp BP Pulse Ox 07/18/20 23:41 96.9 F L 71 16 124/79 H 98 General: Well nourished, Well developed, No Acute Distress Head: Normocephalic, Atraumatic Eyes: Perrl, EOMI ENT: Moist mucous membranes, No rhinorrhea Neck: Supple, Nontender Cardiovascular: Regular rate, Regular rhythm, No murmurs Respiratory: No distress, CTA bilaterally, Chest nontender Abdomen: Soft, Nondistended, Normal bowel sounds, - - TTP throughout the abdomen. No rebound. Back: Nontender, Normal Inspection Extremities: Nontender, No edema Skin: Normal color, No rash Neurological: Alert, Oriented x3, Cranial nerves II-XII grossly intact, Normal Strength, Normal Sensation Psychological: Normal affect, Normal Mood Diagnostic/Tx/Re-eval Laboratory Data 07/19/20 07/19/20 07/19/20 00:07 00:07 01:00 WBC 5.9 RBC 4.64 Hgb 14.7 Hct 42.3 MCV 91.2 MCH 31.7 MCHC 34.8 RDW Std Deviation 40.2 RDW Coeff of [place] 12.0 Plt Count 241 MPV 10.3 Immature Gran % (Auto) 0.300 Neut % (Auto) 54.9 Lymph % (Auto) 34.0 [place] % (Auto) 6.3 Eos % (Auto) 3.7 Baso % (Auto) 0.8 Absolute Neuts (auto) 3.3 Absolute Lymphs (auto) 2.01 Nucleated RBC % 0 Sodium 139 Potassium 3.7 Chloride 107 Carbon Dioxide 28.0 Anion Gap 4 L BUN 12 Creatinine 1.17 Estim Creat Clear Calc 82.39 Est GFR (MDRD) Af Amer 91 Est GFR (MDRD) Non-Af 75 BUN/Creatinine Ratio 10.3 Glucose 106 Calcium 8.8 Total Bilirubin 0.30 AST 16 ALT 25 Alkaline Phosphatase 44 L Total Protein 7.1 Albumin 3.9 Globulin 3.2 Albumin/Globulin Ratio 1.2 Lipase 120 Urine Color Yellow Urine Clarity Clear Urine pH 6.0 Ur Specific [place] 1.010 Urine Protein Negative Urine Glucose (UA) Normal Urine Ketones Negative Urine Occult Blood Negative Urine Nitrite Negative Urine Bilirubin Negative Urine Urobilinogen Normal Ur Leukocyte Esterase Negative Urine RBC 0 SEEN Urine WBC 0 SEEN Ur Squamous Epith Cells 0 SEEN Urine Bacteria 0 SEEN Urine Mucus 0 SEEN - Medical Decision Making Patient appears well and nontoxic. Vital signs within normal limits. Benign abdominal exam. Lab work within normal limits. Patient given 1 L of normal saline as well as Zofran. Patient feeling much improved. Was given Toradol for his right ear effusion. Will be given Naprosyn and Flonase for home. Patient will be given ENT follow-up. Coronavirus negative. Asked to return for new or worsening symptoms. Patient agreeable and discharged home in stable condition. Impression: 1. Right middle ear effusion 2. Nausea and vomiting 3. Abdominal pain ED Disposition - Plan for ED Patient: Disposition: Home or Assisted Living Instructions: ED Earache Without Infection (Adult), Abdominal Pain Prescriptions: Fluticasone 0.05% [Flonase Nasal [place]] 2 spray NASAL DAILY #1 bottle Prescription Printed Naproxen [Naprosyn] 500 mg PO BID #14 tablet Prescription Printed Ondansetron [Zofran Odt] 4 mg PO Q8H PRN PRN #10 tablet PRN Reason: Nausea Prescription Printed Referrals: Newton Herbert MD [Primary Care Provider] - 2 Days Casimiro Ahmadi MD [STAFF PHYSICIAN] - 3-5 Days
[2020-07-19 00:12] LABS: Absolute Lymphocyte Count 2.01 X10^3/uL (0.83-4.51); Absolute Neutrophil Count 3.3 X10^3/uL (2.0-7.7); Basophil# 0.05 X10^3/uL; Basophil% 0.8 % (0-1); Eosinophil# 0.22 X10^3/uL; Eosinophils% 3.7 % (0-5); Hematocrit 42.3 % (40-54); Hemoglobin 14.7 g/dL (13.0-16.5); Lymphocyte # 2.01 X10^3/ul (0.83-4.51); Mean Corp Hgb Conc 34.8 g/dL (32-36); Mean Corpuscular Hgb 31.7 pg (27.0-32.0); Mean Corpuscular Volume 91.2 fL (80-94); Mean Platelet Vol. 10.3 fl (6.2-12.0); Monocyte# 0.37 X10^3/uL; Monocyte% 6.3 % (0-10); NRBC Flagged by Analyzer 0 % (0-5); Neutrophil # 3.25 X10^3/uL (2.7-7.7); Neutrophil % 54.9 % (47-70); Platelet Count 241 K/mm3 (150-450); RBC Distribution Width SD 40.2 fl (35.1-43.9); Red Blood Count 4.64 M/mm3 (4.6-6.2); White Blood Count 5.9 K/mm3 (4.4-11.0)
[2020-07-19] MEDS: Ondansetron 4 MG/2 ML Vial IV (00:12)
[2020-07-19] MEDS: Ketorolac 15 MG/ML Vial IV ×2 (00:12→01:33)
[2020-07-19] MEDS: 0.9% Normal Saline 1,000 ML 1000 ML IV (00:12)
[2020-07-19 00:28] LABS: ALB/GLOB Ratio 1.2 RATIO (0.9-2.4); AST(SGOT) 16 U/L (15-37); Alanine Aminotransfer ALT/SGPT 25 U/L (16-61); Albumin, Serum 3.9 g/dL (3.2-5.0); Alkaline Phosphatase 44 U/L (45-117); Anion Gap 4 (5-15); BUN 12 mg/dL (7-18); BUN/Creat Ratio 10.3 RATIO (10-20); Calcium,Total 8.8 mg/dL (8.5-10.1); Chloride 107 mmol/L (98-107); Creatinine, Serum 1.17 mg/dL (0.70-1.30); EST Glomerular Filtration Rate 75 mL/min (>60); Est Glom Filt Rate - Afr Amer 91 mL/min (>60); Estimated Creatinine Clearance 82.39 ml/min; Globulin 3.2 g/dL (2.2-4.2); Glucose 106 mg/dL (74-106); Lipase 120 U/L (73-393); Potassium 3.7 mmol/L (3.5-5.1); Protein, Total 7.1 g/dL (6.4-8.2); Sodium Level 139 mmol/L (136-145)
[2020-07-19 01:07] LABS: Bacteria 0 SEEN /hpf (None Seen); Color, Urine Yellow (Yellow); Glucose, Dipstick Normal (Normal); Ketone-Dipstick Negative (Negative); Leukocyte Esterase-Dipstick Negative /ul (Negative); Mucous, Urine 0 SEEN /hpf (<or=2+); Nitrite-Dipstick Negative (Negative); Occult Blood-Urine Negative /ul (Negative); Protein-Dipstick Negative (Negative); Red Blood Cells-Urine 0 SEEN /hpf (0-5); Squamous Epithelial Cells - UA 0 SEEN /hpf (0-5); Urine Bilirubin Dipstick Negative (Negative); Urine Clarity Clear (Clear); Urine Urobilinogen Normal (Normal); White Blood Cells 0 SEEN /hpf (0-5)
[2020-07-19 01:08] VITALS: RESP 14
[2020-07-19 01:40] VITALS: BP 163/80; PULSE 50; RESP 16
== END 2020-07-19 02:20 | disposition home or self-care (01) ==
PROVIDERS: Emergency Provider Emergency Medicine; PCP Family Medicine
DX: H93.8X1 Other specified disorders of right ear (principal); R11.2 Nausea with vomiting, unspecified; R10.9 Unspecified abdominal pain; F32.9 Major depressive disorder, single episode, unspecified; F17.200 Nicotine dependence, unspecified, uncomplicated
CPT/HCPCS: 80053; 81001; 83690; 85025; 87426; 96374; 96375; 96376; 99283; J7030; A4216; J2405

== ENCOUNTER 2025-02-24 09:07 | Emergency (ER) | payer OTHER, SELFPAY ==
[2025-02-24 09:08] VITALS: BP 142/96; PULSE 85; RESP 16; TEMP 36.2; O2SAT 99; BMI 24.7
--- NOTE | 2025-02-24 09:19 | ED.VIS.GI ---
HPI HPI - GI History of Present Illness Chief Complaint: Abd Pain Narrative Narrative: 40-year-old male past medical history of previous pancreatitis and surgery for bowel obstruction presents with right upper quadrant abdominal pain that has had intermittently over the last month. He states has been worse over the last few days. He denies any fevers or chills but has had nausea or vomiting. 2 days ago he vomited up his Thanksgiving dinner. He describes both sharp and stabbing as well as dull achy pain in the right upper quadrant of his abdomen. He has had softer bowel movements recently but no diarrhea. No hematemesis. He states that his family member told him that it may be his appendix so he presents out of concern although his symptoms have been intermittent over the last month. Food does not necessarily make it better or worse. [facility] Medical History (Updated 02/24/25 @ 10:31 by Matt Cifuentes MD) Alcohol abuse Anxiety Depression Smoker Migraines Home Medications ?Medication ?Instructions ?Recorded ?Last Taken ?Type Medical Raimundo 05/07/20 Unknown History gabapentin 300 mg capsule 300 mg PO TIDCM 07/18/20 Unknown History fluticasone propionate 50 2 spray NASAL DAILY #1 BOTTLE 07/19/20 Unknown Rx mcg/actuation nasal spray,suspension naproxen 500 mg tablet 500 mg PO BID #14 tabs 07/19/20 Unknown Rx ondansetron 4 mg disintegrating 4 mg PO Q8H PRN PRN Nausea #10 tabs 07/19/20 Unknown Rx tablet Allergy/AdvReac Type Severity Reaction Status Date / Time No Known Allergies Allergy Verified 02/24/25 09:12 Social History Smoking Status: Current every day smoker tobacco type: smokeless tobacco ROS ROS ED ROS Narrative Review of systems positive for nausea and vomiting, loose stool, right upper quadrant abdominal pain radiating to the back. No fevers or chills. No chest pain. No exacerbating or alleviating factors. EXAM Physical Exam Narrative Exam Narrative: Afebrile. Vital signs noted. Nontoxic-appearing. Cardiovascular examination reveals a regular rate and rhythm. Lungs are clear to auscultation bilaterally, no tachypnea, no wheezing. Abdomen is soft with mild tenderness to palpation in the right upper quadrant but no Guerrier sign. No rebound or guarding. Positive bowel sounds. Neurological examination nonfocal, nonlateralizing. No pedal edema noted bilateral lower extremities. Const Vital Signs: 02/24/25 09:08 02/24/25 10:38 Temperature 97.2 F L 98.3 F Temperature Source Temporal Pulse Rate 85 71 Respiratory Rate 16 17 Blood Pressure 142/96 H 112/57 L Blood Pressure Mean 111 75 Pulse Ox 99 98 Oxygen Delivery Method Room Air MDM MDM MDM Narrative Medical decision making narrative: The differential diagnosis includes but not limited to pancreatitis versus acute cholecystitis versus biliary colic. I have low suspicion for ureterolithiasis. Clinically he does not have an acute appendicitis. I have lower suspicion for bowel obstruction although on review of his problem list he has had this in the past. Comprehensive workup was pursued. Patient bolused normal saline 1 L intravenously. I do feel CT imaging is indicated. Interview his laboratory work he has a normal white count of 8.3 with hemoglobin normal at 15.3, hematocrit 44.3, platelet count normal at 309. CMP is remarkable for glucose of 128 with a normal anion gap of 12, normal sodium and potassium, BUN 11 and creatinine 1.13. Lipase normal at 53 so I doubt pancreatitis. Urinalysis negative for infection with 0-5 WBCs. I do not feel antibiotics are indicated. In review of the CT of the abdomen and pelvis with IV contrast radiologist report, there is no acute process, no obstruction. Upon repeat examination at approximately 10:25 AM, he is resting comfortably on the cot with his legs crossed at the ankles. He will be given Toradol for his abdominal pain. I do feel he can be discharged to follow-up with his primary care provider as he had a negative workup here today. Return instructions to the emergency department were reviewed. Disposition is discharged home in stable condition. History & Record Review Discussion w/independent historian: Patient Lab Data Attestation: I reviewed the patient's lab results. Labs: Laboratory Results - last 24 hr 02/24/25 02/24/25 09:25 09:28 WBC 8.3 RBC 4.72 Hgb 15.3 Hct 44.3 MCV 93.9 MCH 32.4 H MCHC 34.5 RDW Std Deviation 45.0 H RDW Coeff of [place] 13.2 Plt Count 309 MPV 9.9 Immature Gran % (Auto) 0.200 Neut % (Auto) 73.8 H Lymph % (Auto) 17.4 L [place] % (Auto) 5.9 Eos % (Auto) 1.7 Baso % (Auto) 1.0 Absolute Neuts (auto) 6.1 Absolute Lymphs (auto) 1.44 Nucleated RBC % 0 Sodium 137 Potassium 4.2 Chloride 102 Carbon Dioxide 22.8 Anion Gap 12 BUN 11 Creatinine 1.13 Estim Creat Clear Calc 81.24 Est GFR (MDRD) Non-Af 84 BUN/Creatinine Ratio 9.8 L Glucose 128 H Calcium 9.4 Total Bilirubin 0.50 AST 27 ALT 17 Alkaline Phosphatase 61 Total Protein 7.2 Albumin 4.4 Globulin 2.8 Albumin/Globulin Ratio 1.6 Lipase 53 Urine Color Yellow Urine Clarity Sl. Cloudy Urine pH 7.0 Ur Specific [place] 1.015 Urine Protein 30 H Urine Glucose (UA) Normal Urine Ketones Negative Urine Occult Blood Negative Urine Nitrite Negative Urine Bilirubin Negative Urine Urobilinogen 1 H Ur Leukocyte Esterase 25 H Urine RBC 0 SEEN Urine WBC 0-5 SEEN Ur Squamous Epith Cells 0 SEEN Urine Bacteria 1+ Urine Mucus 0 SEEN Radiography Diagnostic Testing: Clinical Impression(s) from Imaging Studies Abdomen/Pelvis CT 02/24/25 09:39 IMPRESSION: No acute pathology in the abdomen or pelvis. Reading Location: [facility] Discharge Plan Triage Chief Complaint: Abd Pain ED Provider: Matt Cifuentes Dx/Rx/DC Orders Clinical Impression: Abdominal pain, Right upper quadrant abdominal pain Instructions: ED Abdominal Pain Unkn Cause Male... Prescriptions: No Action Medical [place] gabapentin 300 MG capsule 300 mg PO TIDCM ondansetron 4 MG tablet 4 mg PO Q8H PRN PRN (Reason: Nausea) Qty: 10 0RF naproxen 500 MG tablet 500 mg PO BID Qty: 14 0RF fluticasone propionate 1 SPRAY spray,suspension 2 spray NASAL DAILY Qty: 1 0RF Primary Care Provider: Newton Herbert Referrals: Newton Herbert MD [Primary Care Provider, Family Practice] - 3-5 Days if not improving Activity Restrictions/Additional Instructions: Return to the emergency department with fever, increased pain, new or worsening symptoms. Print Language: Yakut Disposition Disposition: Home, Self Care Discharge Date/Time: 02/24/25 10:55
[2025-02-24] MEDS: 0.9% Normal Saline (1000mL) 1,000 ML 999 ML IV (09:24)
[2025-02-24 09:33] LABS: Hematocrit 44.3 % (40-54); Hemoglobin 15.3 g/dL (13.0-16.5); Immature Granulocytes Count 0.020 X10^3/uL (0.0-0.0); Mean Corp Hgb Conc 34.5 g/dL (32-36); Mean Corpuscular Volume 93.9 fL (80-94); Mean Platelet Vol. 9.9 fl (6.2-12.0); NRBC Flagged by Analyzer 0 % (0-5); Platelet Count 309 K/mm3 (150-450); RBC Distribution Width CV 13.2 % (11.6-14.6); RBC Distribution Width SD 45.0 fl (35.1-43.9); Red Blood Count 4.72 M/mm3 (4.6-6.2); White Blood Count 8.3 K/mm3 (4.4-11.0)
[2025-02-24 09:37] LABS: Mucous, Urine 0 SEEN /hpf (<or=2+); Red Blood Cells-Urine 0 SEEN /hpf (0-5); Squamous Epithelial Cells - UA 0 SEEN /hpf (0-5)
[2025-02-24 09:38] LABS: Color, Urine Yellow (Yellow); Glucose, Dipstick Normal (Normal); Ketone-Dipstick Negative (Negative); Leukocyte Esterase-Dipstick 25 /ul (Negative); Nitrite-Dipstick Negative (Negative); Occult Blood-Urine Negative /ul (Negative); Protein-Dipstick 30 mg/dl (Negative); Specific Gravity, Urine 1.015 (1.002-1.030); Urine Bilirubin Dipstick Negative (Negative)
--- NOTE | 2025-02-24 09:39 | CT_ITS ---
PROCEDURE: ABDOMEN/PELVIS W IV CONT ONLY 02/24/2025 REASON FOR EXAM: RIGHT UPPER QUADRANT ABDOMINAL PAIN TECHNIQUE: Procedure Code: [id number] Modality: CT Procedure: ABDOMEN/PELVIS W IV CONT ONLY Coronal and Sagittal reconstruction series were provided. CONTRAST: Isovue 370 VOLUME: 96 mL One or more dose reduction techniques were used (e.g., Automated exposure control, adjustment of the mA and/or kV according to patient size, use of iterative reconstruction technique. RADIATION DOSE SUMMARY: DLP: 419.70 mGycm COMPARISON: CT abdomen/pelvis 06/14/2018 FINDINGS: Lower chest: Lung bases are clear. Liver: Normal size. Mild hepatic steatosis. No enhancing lesion. Gallbladder and biliary ducts: Unremarkable gallbladder. Normal caliber intrahepatic and common bile ducts. Pancreas:Unremarkable. No ductal dilatation or mass. No peripancreatic fluid. Spleen: Unremarkable. Adrenal glands: Unremarkable. Kidneys and ureters: Normal renal size, morphology, and enhancement. No nephroureterolithiasis, hydronephrosis, or renal mass. Urinary bladder: Nondistended limiting evaluation. GI: Unremarkable stomach and duodenum. Normal caliber small bowel and large bowel. Appendix: Unremarkable. Peritoneum: No ascites. Lymph nodes: No lymphadenopathy. Vasculature: Portal, splenic, and superior mesenteric veins are patent. No abdominal aortic aneurysm. Scattered atherosclerotic calcification of the abdominal aorta. Reproductive organs: Normal size prostate. Symmetrical seminal vesicles. Musculoskeletal and soft tissues: No aggressive osseous lesions. Unremarkable soft tissues. CT/Abdomen/Pelvis W IV Cont ONLY IMPRESSION: No acute pathology in the abdomen or pelvis. Reading Location: [id number]
--- OUTSIDE RECORDS SUMMARY | 2025-02-24 09:50 | XMS RPT_ITS | CCD ---
Author Organization [facility] Inform ion Partnership [facility] Care Team Providers Care Assistant Film Editor Name Role Phone AXEL HUMPHREYS Attending Unavailable YAMIL BOWEN (TIAN) Attending Unavailab zaragoza Free, Text Entry Unavailable Unavailable Garcia Jensen Unavailable Unavailable EMERY Tavera Attending Unavailab zaragoza Allergies Allergy Classification Reported Allergen(s) Allergy Type Date of Onset Reaction(s) Facility (1 source) Citalopram; Translations: [CITALOPRAM HYDROBROMIDE] Drug Allergy 02-27-[address] [facility] Repository (1 source) Sertraline; Translations: [SERTRALINE] Drug Allergy 05-09-[address] [facility] Medications Current Medications Medication Drug Class(es) Dates Sig (Normalized) Sig (Original) hydrOXYzine hydrochloride 50 mg oral tablet (1 source) Antihistamine HydrOXYzine HCL 50MG TAB ; 1 tab(s) orally once a day, As Needed / may take 1/2-2 tabs qd Quantity: 0 Refills: 1 Ordered: 03-Oct-2020 Aleksandra Cummings Generic Substitution Allowed Comments: Source=Surescripts, Medication=HydrOXYzi ne HCL 50MG TAB, OriginatingSource=[id number], OriginatingProvider= NERISSA JUAREZ, Duration=30, Refills=1, Date Last Modified/Filled= Comment on above: Source=Surescripts, Medication=HydrOXYzine HCL 50MG TAB, OriginatingSource=[id number], OriginatingProvider=NERISSA JUAREZ, Duration=30, Refills=1, Date Last Modified/Filled=23-Aug-2020 Problems Problem Classification Problem Date Documented Da te Episodic/Chronic Alcohol-related disorders (2 sources) Alcohol intoxication; Translations: [Alcohol abuse, unspecified] 10-03-2020 Chronic Mood disorders (1 source) Major depressive disorder; Translations: [Major depressive affective disorder, single episode, unspecified] 10-03-2020 Chronic Mood disorders (1 source) Mood disorders 10-03-2020 Poisoning by other medications and drugs (2 sources) Ingestion of foreign material; Translations: [Poisoning by unspecified drug or medicinal substance] 10-03-2020 Episodic Unclassified (2 sources) EVAL 10-03-2020 Comment on above: EVAL Unclassified (1 source) Ingestion of unknown medication 10-03-2020 Unclassified (1 source) Suicide attempt by drug ingestion 10-03-2020 Results Test Name Value Interpretation Reference Range Facility ACETAMINOPHENon 10-03-2020 Acetaminophen [Mass/Vol] 11.8 ug/mL Normal 10.0 - 30.0 [facility] Comment on above: Performed By: #### A LC #### [place] [address] Acetaminophen [Mass/Vol] 27.8 ug/mL Normal 10.0 - 30.0 [facility] Comment on above: Performed By: #### A CETA #### [place] [address] ALCOHOLon 10-03-2020 Ethanol [Mass/Vol] 60 mg/dL Abnormal [facility] Comment on above: Result Comment: FOR MEDICAL USE ONLY. . REF VALUES <10 Performed By: #### A LC #### [place] [address] Ethanol [Mass/Vol] 205 mg/dL Abnormal [facility] Comment on above: Result Comment: FOR MEDICAL USE ONLY. . REF VALUES <10 Performed By: #### A LC #### [place] [address] BASIC METABOLIC PANELon Anion gap [Moles/Vol] 12 mmol/L Normal 10 - 20 [facility] Comment on above: Performed By: #### B MP #### [place] [address] Calcium [Mass/Vol] 9.2 mg/dL Normal 8.6 - 10.3 [facility] Comment on above: Performed By: #### B MP #### [address] [address] Chloride [Moles/Vol] 110 mmol/L High 98 - 107 [facility] Comment on above: Performed By: #### B MP #### [address] [address] Creatinine [Mass/Vol] 0.98 mg/dL Normal 0.50 - 1.30 [facility] Comment on above: Performed By: #### B MP #### [address] [address] GFR- AM. >60 Normal >60 [facility] Comment on above: Result Comment: CALC ULATIONS OF ESTIMATED GFR ARE PERFORMED USING THE MDRD STUDY EQUATION FOR THE IDMS-TRACEABLE CREATININE METHODS. CLIN CHEM 2007;53:766-72 Performed By: #### B MP #### [address] [address] GFR-NON AM. >60 Normal >60 [facility] Comment on above: Performed By: #### B MP #### [address] [address] Glucose [Mass/Vol] 108 mg/dL High 74 - 99 [facility] Comment on above: Performed By: #### B MP #### [address] [address] HCO3 (Bld) [Moles/Vol] 27 mmol/L Normal 21 - 32 [facility] Comment on above: Performed By: #### B MP #### [address] [address] Potassium [Moles/Vol] 3.7 mmol/L Normal 3.5 - 5.3 [facility] Comment on above: Performed By: #### B MP #### [address] [address] Sodium [Moles/Vol] 145 mmol/L Normal 136 - 145 [facility] Comment on above: Performed By: #### B MP #### [address] [address] Urea nitrogen [Mass/Vol] 9 mg/dL Normal 6 - 23 [facility] Comment on above: Performed By: #### B MP #### [address] [address] CBC AND DIFFERENTIALon 10-03 Basophils (Bld) [#/Vol] 0.10 10*3/uL Normal 0.00 - 0.10 [facility] Comment on above: Performed By: #### C BCDF #### [address] [address] Basophils/100 WBC (Bld) 1.1 % Normal 0.0 - 2.0 [facility] Comment on above: Performed By: #### C BCDF #### [address] [address] Eosinophils (Bld) [#/Vol] 0.10 10*3/uL Normal 0.00 - 0.70 [facility] Comment on above: Performed By: #### C BCDF #### [address] [address] Eosinophils/100 WBC (Bld) 1.1 % Normal 0.0 - 6.0 [facility] Comment on above: Performed By: #### C BCDF #### [address] [address] Erythrocyte distribution width (RBC) [Ratio] 13.6 % Normal 11.5 - 14.5 [facility] Comment on above: Performed By: #### C BCDF #### [address] [address] Hematocrit (Bld) [Volume fraction] 43.8 % Normal 41.0 - 52.0 [facility] Comment on above: Performed By: #### C BCDF #### [address] [address] Hemoglobin (Bld) [Mass/Vol] 14.5 g/dL Normal 13.5 - 17.5 [facility] Comment on above: Performed By: #### C BCDF #### [address] [address] Lymphocytes (Bld) [#/Vol] 2.60 10*3/uL Normal 1.20 - 4.80 [facility] Comment on above: Performed By: #### C BCDF #### [address] [address] Lymphocytes/100 WBC (Bld) 20.5 % Normal 13.0 - 44.0 [facility] Comment on above: Performed By: #### C BCDF #### [address] [address] MCHC (RBC) [Mass/Vol] 33.2 g/dL Normal 32.0 - 36.0 [facility] Comment on above: Performed By: #### C BCDF #### [address] [address] MCV (RBC) [Entitic vol] 95 fL Normal 80 - 100 [facility] Comment on above: Performed By: #### C BCDF #### [address] [address] Monocytes (Bld) [#/Vol] 0.80 10*3/uL Normal 0.10 - 1.00 [facility] Comment on above: Performed By: #### C BCDF #### [address] [address] Monocytes/100 WBC (Bld) 5.8 % Normal 2.0 - 10.0 [facility] Comment on above: Performed By: #### C BCDF #### [address] [address] Neutrophils (Bld) [#/Vol] 9.30 10*3/uL High 1.20 - 7.70 [facility] Comment on above: Result Comment: Perc ent differential counts (%) should be interpreted in the context of the absolute cell counts (cells/L). Performed By: #### C BCDF #### [address] [address] Neutrophils/100 WBC (Bld) 71.5 % Normal 40.0 - 80.0 [facility] Comment on above: Performed By: #### C BCDF #### [place] [address] NUCLEATED RBC 0.1 /100 WBC Normal [facility] Comment on above: Performed By: #### C BCDF #### [place] [id number] Platelets (Bld) [#/Vol] 332 10*3/uL Normal 150 - 450 [facility] Comment on above: Performed By: #### C BCDF #### [place] [address] RBC 4.62 x10E12/L Normal 4.50 - 5.90 [facility] Comment on above: Performed By: #### C BCDF #### [place] [address] WBC (Bld) [#/Vol] 12.9 10*3/uL High 4.4 - 11.3 [facility] Comment on above: Performed By: #### C BCDF #### [place] [address] CORONAVIRUS 2019 BY PCRon SARS-CoV-2 (COVID-19) RNA MICHAEL+probe Ql (Unsp spec) Not detected Normal Not Detected [facility] Comment on above: Result Comment: . This test has received FDA Emergency Use Authorization (EUA) and has been verified by [facility]. This test is only authorized for the duration of time that circumstances exist to justify the authorization of the emergency use of in vitro diagnostic tests for the detection of SARS-CoV-2 virus and/or diagnosis of COVID-19 infection under section 564(b)(1) of the Act, 21 U.S.C. 360bbb-3(b)(1), unless the authorization is terminated or revoked sooner. [facility] is certified under CLIA-88 as qualified to perform high complexity testing. Testing is performed in the [facility] laboratory located at [address] [place] [address]. SARS-CoV-2/Flu/RSV Multiplex Test: Fact sheet for providers: https://www.fda.gov/media/294020/download Fact sheet for patients: https://www.fda.gov/media/765808/download Performed By: #### C OV19 #### [address] [address] Lab Specimen Source Nasal, Nasopharyngeal [facility] Comment on above: Performed By: #### C OV19 #### [address] [address] DATE OF SYMPTOM ONSET [[id number]]? [id number] [facility] Comment on above: Performed By: #### C OV19 #### [address] [address] Covid 19 Resultson 1 SARS-CoV-2 (COVID-19) RNA MICHAEL+probe Ql (Unsp spec) NEGATIVE COVID-19 Test Coronaviruses are common world-wide and are the cause of many common colds. SARS-COV2 is a new coronavirus that began circulating worldwide in 2019 so we are calling it COVID-19. It has been estimated that four out of five patients with COVID-19 will recover at home without the need for medical attention. Symptoms of COVID-19 may include cough, fever, shortness of breath, loss of taste or smell and other flu-like symptoms including chills, sore muscles, sore throat, and headache. Severe illness is more common in older people and people with other health problems such as high blood pressure, obesity, and immune system problems. If the test is positive, you have COVID-19. You will be contacted by the ordering physicians office and instructed to remain on home isolation, in accordance with CDC guidelines. You may also be contacted by the [facility] to see if any of your close contacts may have been exposed to the virus and need to quarantine. If the test is negative, you likely do not have COVID-19 at this time, but you still may have a different illness that can spread to other people (like Influenza, or the Flu) and could still be at risk for getting COVID-19. We recommend that you stay away from other people to limit the spread of illness until your symptoms are improving and you are fever-free for 24 hours without the use of fever lowering medications such as acetaminophen or ibuprofen. No test is 100% accurate so if you are still concerned you may have COVID-19, talk to your doctor about the need to continue to stay away from others. Medicines Unless your provider told you not to use the following: Acetaminophen (Tylenol and others) is generally safe. Anti-inflammatory medications, such as Ibuprofen (Advil or Motrin) or Naproxen (Aleve) can also be used. Vhxy-chu-dxnsyes cough and cold medicines can be used according to the instructions on the package. Some nqbr-lmm-nngqtme medicines also contain acetaminophen. Make sure you are not taking more than your recommended dose. For those not hospitalized, there is no specific treatment available for this illness. Antibiotics do not treat Coronaviruses. Follow-Up Follow up with your doctor by scheduling a virtual visit or consider follow-up at one of our urgent care fever clinics. If you are having difficulty breathing, or are very weak and having difficulty standing, this is a medical emergency. Call 911 or have someone take you to the nearest emergency room immediately. If possible, wear a facemask. Additional guidance from the CDC for patients who tested POSITIVE for COVID-19 How to isolate: Isolate yourself in a specific room at home and limit your contact with others. Use a separate bathroom from other members of the household, when possible. Leave home only to get essential medical care. Do not go to work, school or public areas. Avoid using public transportation, ride-sharing, or taxis. Restrict contact with pets and other animals. If you must care for your pet or be around animals while you are sick, wash your hands before and after your interaction and wear a facemask. Make sure that shared spaces in the home have good airflow, such as by an air conditioner or an opened window, weather permitting. Personal Hygiene Procedures: Wear a face mask when in the same room as other people or pets. If a face mask interferes with your breathing, others should wear a mask when sharing space with you. Frequent hand-washing: wash your hands with soap and water for at least 20 seconds. If soap and water are not available, use alcohol-based hand energy conservation technician. Avoid touching your eyes, nose, and mouth with unwashed hands. Household Hygiene Procedures: Avoid sharing personal household items such as dishes, glassware, cups, eating utensils, towels or bedding with other people or pets in your home. After use, these items should be washed with soap and hot water. Disinfect all high-touch surfaces every day with antibacterial cleaning solutions such as Lysol wipes, bleach, cleansers, etc. High-touch surfaces include tabletops, doorknobs, bathroom fixtures, toilets, phones, keyboards, tablets and bedside tables. Immediately clean any surfaces that may have blood, poop or body fluids on them, using antibacterial cleaning solutions such as Lysol wipes, bleach, cleansers, etc. If clothing or bedding come into contact with blood, poop or body fluids, they should be washed immediately. Follow the directions on the laundry detergent and clothing labels but hot water is recommended when possible. Stopping home isolation precautions: If possible, consult your doctor before stopping home isolation precautions. According to the CDC, you can discontinue home isolation precautions when you have met both of these criteria: Your fever and respiratory symptoms have been gone for 24 amalia (more content not included)... Normal [facility] DRUG SCREEN,URINEon 10-04-19 21 AMPHETAMINE SCREEN,U Negative Normal NEGATIVE [facility] Comment on above: Result Comment: CUTO FF LEVEL: 500 NG/ML Cross-reactivity has been reported with high concentrations of the following drugs: buproprion, chloroquine, chlorpromazine, ephedrine, mephentermine, fenfluramine, phentermine, phenylpropanolamine, pseudoephedrine, and propranolol. Performed By: #### D RUG3 #### [place] [address] BARBITURATES SCREEN,U Negative Normal NEGATIVE [facility] Comment on above: Result Comment: CUTO FF LEVEL: 200 NG/ML Performed By: #### D RUG3 #### [address] [address] BENZODIAZEPINES SCREEN,U Negative Normal NEGATIVE [facility] Comment on above: Result Comment: CUTO FF LEVEL: 200 NG/ML Performed By: #### D RUG3 #### [place] [id number] CANNABINOIDS SCREEN,U Negative Normal NEGATIVE [facility] Comment on above: Result Comment: CUTO FF LEVEL: 50 NG/ML Performed By: #### D RUG3 #### [place] [address] COCAINE METABOLITE SCREEN,U Negative Normal NEGATIVE [facility] Comment on above: Result Comment: CUTO FF LEVEL: 150 NG/ML Performed By: #### D RUG3 #### [place] [id number] DRUG SCREEN COMMENT SEE BELOW Normal [facility] Comment on above: Result Comment: Drug screen results are presumptive and should not be used to assess compliance with prescribed medication. Contact the performing [facility] laboratory to add-on definitive confirmatory testing if clinically indicated. . Toxicology screening results are reported qualitatively. The concentration must be greater than or equal to the cutoff to be reported as positive. The concentration at which the screening test can detect an individual drug or metabolite varies. The absence of expected drug(s) and/or drug metabolite(s) may indicate non-compliance, inappropriate timing of specimen collection relative to drug administration, poor drug absorption, diluted/adulterated urine, or limitations of testing. For medical purposes only; not valid for forensic use. . Interpretive questions should be directed to the laboratory medical directors. Performed By: #### D RUG3 #### [place] [address] FENTANYL SCREEN,URINE Negative Normal NEGATIVE [facility] Comment on above: Result Comment: CUTO FF LEVEL: 1 NG/ML The performance characteristics of this test have been determined by the individual laboratory site where testing is performed. This test has not been cleared or approved by the FDA; however, the FDA has determined that such clearance is not necessary. Performed By: #### D RUG3 #### [place] [address] METHADONE SCREEN,U Negative Normal NEGATIVE [facility] Comment on above: Result Comment: CUTO FF LEVEL: 150 NG/ML The metabolite S-zuomj-ocqbrjpmseeiut (LAAM) is not detected by this method in concentrations that would be found in the urine of patients on LAAM therapy. Performed By: #### D RUG3 #### [place] [id number] OPIATES SCREEN,U Negative Normal NEGATIVE [facility] Comment on above: Result Comment: CUTO FF LEVEL: 300 NG/ML The opiate screen does not detect fentanyl, meperidine, or tramadol. Oxycodone is not consistently detected (refer to Oxycodone Screen, Urine result). Performed By: #### D RUG3 #### [place] [id number] OXYCODONE SCREEN,U Negative Normal NEGATIVE [facility] Comment on above: Result Comment: CUTO FF LEVEL: 100 NG/ML This test will accurately detect both oxycodone and oxymorphone. Performed By: #### D RUG3 #### [place] [id number] PCP SCREEN,U Negative Normal NEGATIVE [facility] Comment on above: Result Comment: CUTO FF LEVEL: 25 NG/ML Cross-reactivity has been reported with dextromethorphan. Performed By: #### D RUG3 #### [place] [id number] HEPATIC FUNCTION PANELon Albumin [Mass/Vol] 4.2 g/dL Normal 3.4 - 5.0 [facility] Comment on above: Performed By: #### H EPFP #### [address] [address] ALP [Catalytic activity/Vol] 46 U/L Normal 33 - 120 [facility] Comment on above: Performed By: #### H EPFP #### [address] [address] ALT [Catalytic activity/Vol] 22 U/L Normal 10 - 52 [facility] Comment on above: Result Comment: Beatrice ents treated with Sulfasalazine may generate falsely decreased results for ALT. Performed By: #### H EPFP #### [address] [address] AST [Catalytic activity/Vol] 20 U/L Normal 9 - 39 [facility] Comment on above: Performed By: #### H EPFP #### [address] [address] Bilirubin [Mass/Vol] 0.2 mg/dL Normal 0.0 - 1.2 [facility] Comment on above: Performed By: #### H EPFP #### [place] [address] [place] [address] Bilirubin.indirect [Mass/Vol] 0.0 mg/dL Normal 0.0 - 0.3 [facility] Comment on above: Performed By: #### H EPFP #### [place] [address] [place] [address] Protein [Mass/Vol] 6.7 g/dL Normal 6.4 - 8.2 [facility] Comment on above: Performed By: #### H EPFP #### [address] [address] Provider Note - ED v2on Provider Note - ED v2 Provider Note - ED v2: Chart Review: ED NOTES ED NOTES: CC=SUICIDE ATTEMPT/INGESTION HPI= this is a patient who apparently is going through a rather nasty divorce he does not have custody of his kids and there is a protection order out against him when he got off work this morning he was very depressed and suicidal. He drank 8 beers took a handful of Tylenol tablets as well as some of the Vistaril tablets that he had had. The Vistaril prescription was from July and there were 60 tablets total there is only 25 remaining so is not sure exactly how many he might of taken. He states that he wanted to kill himself and that if he is discharged she will try it once again apparently he has had a remote history of a suicide attempt by ingestion also. SH-positive for marijuana usage and alcohol consumption PM HX-history of depression and remote suicide attempt HISTORY OF PRESENTING ILLNESS [place] is a 35 year old Male and was seen by me at 03-Oct-2020 09:07 for a chief complaint of suicidal attempt (To ED per [employer] squad from home. Pt reports that he has been drinking all morning, both beer and liquor. He also took an unknown amt of Tylenol and Hydroxazine just prior to calling 911. Pt admits to being suicidal and when asked if he was trying to kill himself he says Fuck yeah I was. He also reports that he would like to hurt his soon to be ex as he is going through a bad divorce per [employer] officer. He reports that he wouldn't do that though, that's why he is trying to kill himself. He tells [employer] officer that as soon as he gets out of here he is going to do it again.)(1). Triage Information: Most recent Vital Sign Value Date Temp (F): 97.8 10-03-2020 09:05 Temp (C): 36.6 10-03-2020 09:05 Heart Rate (beats/min): 111 10-03-2020 09:05 Respirations (breaths/min): 16 10-03-2020 09:05 SpO2 (%): 97 10-03-2020 09:05 BP Systolic (mm Hg): 150 10-03-2020 09:05 BP Diastolic (mm Hg): 99 10-03-2020 09:05 PAST MEDICAL HISTORY ATTESTATION: I have reviewed and confirmed nurse's/medic's notes for patient's medications, allergies, and medical, surgical, family and social history ALLERGIES/INTOLERANCE S: No Known Allergies HEALTH HISTORY: No documented data. OUTPATIENT MEDICATIONS: Home Medications Review Status for Reconciliation: Complete Med Status: Patient Currently Takes Medications Drug Name: HydrOXYzine HCL 50MG TAB Instructions: 1 tab(s) orally once a day, As Needed / may take 1/2-2 tabs qd SIGNIFICANT EVENTS: No documented data. REVIEW OF SYSTEMS CONSTITUTIONAL: POSITIVE for: malaise Negative for: chills and fever EYES: Negative for: photophobia and vision changes ENMT Ears: Negative for: pain Nose: Negative for: congestion and discharge Throat/Neck: Negative for: neck pain and neck stiffness CARDIOVASCULAR: Negative for: chest pain, edema and palpitations RESPIRATORY: Negative for: cough and dyspnea GASTROINTESTINAL: Negative for: abdominal pain, nausea and vomiting; GENITOURINARY: Negative for: dysuria, frequency and hematuria; MUSCULOSKELETAL: Negative for: joint pain and stiffness INTEGUMENTARY: Negative for: petechiae and rash NEUROLOGICAL: Negative for: dizziness and headache; PSYCHIATRIC: POSITIVE for: depression HEME/LYMPH: Negative for: anemia, easy bleeding and easy bruising All other systems reviewed and are negative RESULTS/VITAL SIGNS RESULTS: Recent Lab Results: I have reviewed these laboratory results: Acetaminophen Level, Serum Trending View [id number] 13:39:00 03-Oct-2020 09:19:00 Acetaminophen Level, Serum11.8 27.8 Ethanol Level Trending View [id number] 13:39:00 03-Oct-2020 09:19:00 Ethanol Level60 A 205 A Drug Screen, Urine 03-Oct-2020 09:27:00 ResultValue Comments. SEE BELOW Drug screen results are presumptive and should not be used to assess compliance with prescribed medication. Contact the performing [facility] laboratory to add-on definitive confirmatory testing if clinically indicated. . Toxicology scre Amphetamine Screen, Urine PRESUMPTIVE NEGATIVE CUTOFF LEVEL: 500 NG/ML Cross-reactivity has been reported with high concentrations of the following drugs: buproprion, chloroquine, chlorpromazine, ephedrine, mephentermine, fenfluramine, phentermine, phenylpropanolamine Barbiturate Screen, Urine PRESUMPTIVE NEGATIVE PRESUMPTIVE NEGATIVE CUTOFF LEVEL: 200 NG/ML Benzodiazepine Screen, Urine PRESUMPTIVE NEGATIVE PRESUMPTIVE NEGATIVE CUTOFF LEVEL: 200 NG/ML Cannabinoid Screen, Urine PRESUMPTIVE NEGATIVE PRESUMPTIVE NEGATIVE CUTOFF LEVEL: 50 NG/ML Cocaine Metabolite Screen, Urine PRESUMPTIVE NEGATIVE PRESUMPTIVE NEGATIVE CUTOFF LEVEL: 150 NG/ML Fentanyl Screen, Urine PRESUMPTIVE NEGATIVE CUTOFF LEVEL: 1 NG/ML The performance characteristics of this test have been determined by the individual laboratory site where testing is performed. This test has not b (more content not included)... Normal [facility] SALICYLATEon 10-03-2020 SALICYLATE 6 mg/dL Normal 4 - 20 [facility] Comment on above: Performed By: #### A LC #### [address] [place] [address] TROPONIN Ion 10-03-2020 Troponin I.cardiac [Mass/Vol] ng/mL Normal 0.00 - 0.03 [facility] Comment on above: Result Comment: LESS THAN 0.04 NG/ML: NEGATIVE REPEAT TESTING IN THREE TO SIX HOURS IF CLINICALLY INDICATED. 0.04 - 0.5 NG/ML: CONSISTENT WITH POSSIBLE CARDIAC DAMAGE AND POSSIBLE INCREASED CLINICAL RISK. SERIAL MEASUREMENTS MAY HELP ASSESS EXTENT OF MYOCARDIAL DAMAGE. >0.5 NG/ML: CONSISTENT WITH CARDIAC DAMAGE, INCREASED CLINICAL RISK AND MYOCARDIAL INFARCTION. SERIAL MEASUREMENTS MAY HELP ASSESS EXTENT OF MYOCARDIAL DAMAGE. . Note: Troponin I testing is performed using different testing methodology at [facility] (Former[facility]) than at other system hospitals. Direct result comparisons should only be made within the same method. Performed By: #### T ROP2 #### [facility] [id number] Triage - EDon 10-03-2020 Triage - ED Quick Triage: The patient and/or guardian verbally acknowledges placement for services into the following (when Urgent Care Service hours are operating):emergency department Chart Review: ARRIVAL INFORMATION Mode of Arrival: ambulance Agency: City Agency Name: [facility] CHIEF COMPLAINT HOUSTON RIGGINS is a Male patient with a chief complaint of suicidal attempt (To ED per [facility] squad from home. Pt reports that he has been drinking all morning, both beer and liquor. He also took an unknown amt of Tylenol and Hydroxazine just prior to calling 911. Pt admits to being suicidal and when asked if he was trying to kill himself he says Fuck yeah I was. He also reports that he would like to hurt his soon to be ex as he is going through a bad divorce per [employer] officer. He reports that he wouldn't do that though, that's why he is trying to kill himself. He tells [employer] officer that as soon as he gets out of here he is going to do it again.). Triage Date/Time: 03-Oct-2020 09:05 ENRIQUE: 2 Pain Rating (0-10): 0 = None Vital Signs: Temperature: 97.8F ( 36.6C) taken oral Blood Pressure: 150/99 Mean: Heart Rate: 111 Respiratory Rate: 16 Pulse Oximetry: 97% on room air, no respiratory support. Weight: 154.3 pounds. Calculated 70.0 kg. Josee Coma Scale: Best Eye Response: (E4) spontaneous Best Motor Response: (M6) obeys commands Best Verbal Response: (V5) oriented Tilden Score: 15 Cough lasting greater than 3 weeks: no Allergies: no Mask applied: yes Patient has homicidal thoughts: no Symptoms Are POSITIVE For: depression and suicidal thoughts. Symptoms Are Negative For: agitated, anorexia, confusion, fatigue, hallucinations and withdrawn. Risk Screens Suicide Risk Screen In the Past Month: Have you wished you were or wished you could go to sleep and not wake up yes In the Past Month: Have you had any actual thoughts of killing yourself yes In the Past Month: Have you been thinking about how you might do this yes In the Past Month: Have you had these thoughts and had some intention of acting on them yes In the Past Month: Have you started to work out or worked out the details of how to kill yourself Do you intend to carry out this plan yes In Your Lifetime: Have you ever done anything, started to do anything, or prepared to do anything to end your life yes Was this within the past 3 months yes Suicide Risk Interventions Low Suicide Risk Interventions: consider behavioral health resources will be given at discharge Moderate Suicide Risk Interventions: Interventions initiated: comfort care provided, items from room which may be used to harm self removed, patient placed in an easily observable room with curtain remaining open, patient placed in gown and wanded, provider notified, remaining risks identified and mitigated, therapeutic diversion offered (puzzles, games, journaling, TV blank box) elopement risk identified; family/visitor advised to maintain control of own personal belongings in room; finger food diet enforced; frequent rounding with irregular checks at a minimum of every 15 minutes to assess psych safety performed (patient easily observed); home medication list collected and shared with provider; hourly behavioral assessment performed; patient observer at bedside, verbal handoff given; patient placed in psych safe room; personal belongings secured and visitors limited when necessary and personal items screened High Suicide Risk Interventions: patient under constant observation at all timesicon high Items removed from room: bedside table/carts, bulletin board push pins and tasks, cleaning solutions/chemicals, coat hangers, gloves, IV poles, linen bin, loose cords (monitor cords, electric, tubing), otoscope, oxygen/oxygen canister, plastic bags (including trash bags), suction regulators, sharp or glass objects, sharps container, and scissors Remaining risks identified and mitigated: bed/stretcher; call light cords; door handles/closers; electrical outlets; monitors and cords and TV bracket and cords Mckeon Fall Scale Screening Has the patient fallen before (or is the patient in the ED as a result of a fall) has not had a fall Does the patient have an impaired gait does not have impaired gait Is the patient cognitively impaired not cognitively impaired Interventions: Mike Fall Interventions: LOW INTERVENTIONS: *patient oriented to surroundings and call system, * patient/family falls education completed and documented, *patients fall status communicated during bedside handoff, *whiteboard updated, *mode of toileting discussed with patient, *bed in low position with brakes locked, *call light in reach, * non-skid footwear TRAVEL HISTORY Travel History Coronavirus Screening: no exposure or symptoms Travel Exposure History: NO travel to International locations in the past 30 days (more content not included)... Normal [facility] URINALYSISon 10-03-2020 Appearance (U) CLEAR Normal CLEAR [facility] Comment on above: Performed By: #### U A #### [place] [address] Bilirubin Ql (U) Negative Normal NEGATIVE [facility] Comment on above: Performed By: #### U A #### [place] [address] Color (U) Colorless Normal STRAW,YELLOW [facility] Comment on above: Performed By: #### U A #### [id number] Glucose Ql (U) Negative Normal NEGATIVE [facility] Comment on above: Performed By: #### U A #### [address] [address] Hemoglobin Ql (U) Negative Normal NEGATIVE [facility] Comment on above: Performed By: #### U A #### [address] [address] Ketones Ql (U) Negative Normal NEGATIVE [facility] Comment on above: Performed By: #### U A #### [id number] Leukocyte esterase Test strip Ql (U) Negative Normal NEGATIVE [facility] Comment on above: Performed By: #### U A #### [address] [address] Nitrite Ql (U) Negative Normal NEGATIVE [facility] Comment on above: Performed By: #### U A #### [address] [address] pH (U) 7.0 [pH] Normal 5.0 - 8.0 [facility] Comment on above: Performed By: #### U A #### [address] [address] Protein Ql (U) Negative Normal NEGATIVE [facility] Comment on above: Performed By: #### U A #### [address] [address] Specific gravity (U) [Rel density] 1.002 Low 1.005 - 1.035 [facility] Comment on above: Performed By: #### U A #### [address] [address] Urobilinogen (U) [Mass/Vol] mg/dL Normal 0.0 - 1.9 [facility] Comment on above: Performed By: #### U A #### [address] [address] CBC W/Diff, Automatedon 06-28 Absolute Lymph 2.01 X10 3/uL Normal 0.83-4.51 [facility] Comment on above: Performed By: #### L 501.2450, L100.0100, L500.4050 #### [facility] [address] [place], [address] Absolute Neut 3.3 X10 3/uL Normal 2.0-7.7 [facility] Comment on above: Performed By: #### L 501.2450, L100.0100, [id number] #### [facility] [address] [place], [address] Basophils/100 WBC (Bld) 0.8 % Normal 0-1 [facility] Comment on above: Performed By: #### L 501.2450, L100.0100, [id number] #### [facility] [address] [place], [address] Eosinophils/100 WBC (Bld) 3.7 % Normal 0-5 [facility] Comment on above: Performed By: #### L 501.2450, L100.0100, [id number] #### [facility] [address] [place], [address] Erythrocyte distribution width (RBC) [Ratio] 12.0 % Normal 11.6-14.6 [facility] Comment on above: Performed By: #### L 501.2450, L100.0100, [id number] #### [facility] [address] [place], [address] Hematocrit (Bld) [Volume fraction] 42.3 % Normal 40-54 [facility] Comment on above: Performed By: #### L 501.2450, L100.0100, [id number] #### [facility] [address] [place], [address] Hemoglobin (Bld) [Mass/Vol] 14.7 g/dL Normal 13.0-16.5 [facility] Comment on above: Performed By: #### L 501.2450, L100.0100, [id number] #### [facility] [address] [place], [address] IG% 0.300 Normal 0.0-0.9 [facility] Comment on above: Result Comment: IG% - Immature Granulocytes (promyelocytes, myelocytes and metamyelocytes) > 1% indicates that a LEFT SHIFT is Present. Performed By: #### L 501.2450, L100.0100, L500.4050 #### [facility] [address] [place], [address] Lymphocytes/100 WBC (Bld) 34.0 % Normal 19-41 [facility] Comment on above: Performed By: #### L 501.2450, L100.0100, [id number] #### [facility] [address] [place], [address] MCH (RBC) [Entitic mass] 31.7 pg Normal 27.0-32.0 [facility] Comment on above: Performed By: #### L 501.2450, L100.0100, [id number] #### [facility] [address] [place], [address] MCHC (RBC) [Mass/Vol] 34.8 g/dL Normal 32-36 [facility] Comment on above: Performed By: #### L 501.2450, L100.0100, [id number] #### [facility] [address] [place], [address] MCV (RBC) [Entitic vol] 91.2 fL Normal 80-94 [facility] Comment on above: Performed By: #### L 501.2450, L100.0100, [id number] #### [facility] [address] [place], [address] Monocytes/100 WBC (Bld) 6.3 % Normal 0-10 [facility] Comment on above: Performed By: #### L 501.2450, L100.0100, [id number] #### [facility] [address] [place], [address] Neutrophils/100 WBC (Bld) 54.9 % Normal 47-70 [facility] Comment on above: Performed By: #### L 501.2450, L100.0100, [id number] #### [facility] [address] [place], [address] Nucleated RBC (Bld) [#/Vol] 0 10*3/uL Normal 0-5 [facility] Comment on above: Performed By: #### L 501.2450, L100.0100, [id number] #### [facility] [address] [place], [address] Platelet mean volume (Bld) [Entitic vol] 10.3 fL Normal 6.2-12.0 [facility] Comment on above: Performed By: #### L 501.2450, L100.0100, [id number] #### [facility] [address] [place], [address] Platelets (Bld) [#/Vol] 241 10*3/uL Normal 150-450 [facility] Comment on above: Performed By: #### L 501.2450, L100.0100, [id number] #### [facility] [address] [place], [address] RBC (Bld) [#/Vol] 4.64 10*6/uL Normal 4.6-6.[address] [facility] Comment on above: Performed By: #### L 501.2450, L100.0100, [id number] #### [facility] [address] [place], [address] RDW SD 40.2 fl Normal 35.1-43.9 [facility] Comment on above: Performed By: #### L 501.2450, L100.0100, [id number] #### [facility] [address] [place], [address] WBC (Bld) [#/Vol] 5.9 10*3/uL Normal 4.4-11.0 [facility] Comment on above: Performed By: #### L 501.2450, L100.0100, [id number] #### [facility] [address] [place], [address] Comprehensive Metabolic Prof [facility] 07-19-2020 Albumin [Mass/Vol] 3.9 g/dL Normal 3.2-5.0 [facility] Comment on above: Performed By: #### L 501.2450, L100.0100, L500.4050 #### [facility] [address] [place], [address] Albumin/Globulin [Mass ratio] 1.2 {ratio} Normal 0.9-2.4 [facility] Comment on above: Performed By: #### L 501.2450, L100.0100, [id number] #### [facility] [address] [place], [address] ALK P 44 U/L Low 45-117 [facility] Comment on above: Performed By: #### L 501.2450, L100.0100, [id number] #### [facility] [address] [place], [address] ALT [Catalytic activity/Vol] 25 U/L Normal 16-61 [facility] Comment on above: Performed By: #### L 501.2450, L100.0100, [id number] #### [facility] [address] [place], [address] AST [Catalytic activity/Vol] 16 U/L Normal 15-37 [facility] Comment on above: Performed By: #### L 501.2450, L100.0100, [id number] #### [facility] [address] [place], [address] Bilirubin [Mass/Vol] 0.30 mg/dL Normal 0.20-1.00 [facility] Comment on above: Result Comment: For patients on eltrombopag therapy, use of Dimension [place] TBIL is not recommended. Performed By: #### L 501.2450, L100.0100, L500.4050 #### [facility] [address] [place], [address] BUN/CRE 10.3 RATIO Normal 10-20 [facility] Comment on above: Performed By: #### L 501.2450, L100.0100, [id number] #### [facility] [address] [place], [address] CA,Total 8.8 mg/dL Normal 8.5-10.1 [facility] Comment on above: Performed By: #### L 501.2450, L100.0100, [id number] #### [facility] [address] [place], [address] Chloride [Moles/Vol] 107 mmol/L Normal 98-107 [facility] Comment on above: Performed By: #### L 501.2450, L100.0100, [id number] #### [facility] [address] [place], [address] CO2 [Moles/Vol] 28.0 mmol/L Normal 21.0-32.0 [facility] Comment on above: Performed By: #### L 501.2450, L100.0100, L500.4050 #### [facility] [address] [place], [address] Creatinine [Mass/Vol] 1.17 mg/dL Normal 0.70-1.30 [facility] Comment on above: Result Comment: The validity of the calculated GFR GFRAA in patients over 70 years has not been determined. Clinical correlation is essential. Performed By: #### L 501.2450, L100.0100, L500.4050 #### [facility] [address] [place], [address] ECRCL 82.39 ml/min Normal [facility] Comment on above: Performed By: #### L 501.2450, L100.0100, L500.4050 #### [facility] [address] [place], [address] EST GFR - AA 91 mL/min Normal >60 [facility] Comment on above: Result Comment: Afri can Mac[place] GFR Calc Performed By: #### L 501.2450, L100.0100, L500.4050 #### [facility] [address] [place], [address] GAP 4 Low 5-15 [facility] Comment on above: Performed By: #### L 501.2450, L100.0100, L500.4050 #### [facility] [address] [place], [address] GFR/1.73 sq M.predicted among non-blacks MDRD (S/P/Bld) [Vol rate/Area] 75 mL/min/{1.73_m2} Normal >60 [facility] Comment on above: Result Comment: Non- GFR Calc Performed By: #### L 501.2450, L100.0100, L500.4050 #### [facility] [address] [place], [address] Globulin (S) [Mass/Vol] 3.2 g/dL Normal 2.2-4.2 [facility] Comment on above: Performed By: #### L 501.2450, L100.0100, L500.4050 #### [facility] [address] [place], [address] Glucose [Mass/Vol] 106 mg/dL Normal 74-106 [facility] Comment on above: Result Comment: Fast ing Glucose result from 100 to 125 mg/dL suggests IMPAIRED HOMEOSTASIS per A.D.A. criteria. Please note revised GLUCOSE reference range effective 2017. Performed By: #### L 501.2450, L100.0100, L500.4050 #### [facility] [address] [place], [address] Potassium [Moles/Vol] 3.7 mmol/L Normal 3.5-5.1 [facility] Comment on above: Performed By: #### L 501.2450, L100.0100, L500.4050 #### [facility] [address] [place], [address] Sodium [Moles/Vol] 139 mmol/L Normal 136-145 [facility] Comment on above: Performed By: #### L 501.2450, L100.0100, L500.4050 #### [facility] [address] [place], [address] T PROT 7.1 g/dL Normal 6.4-8.2 [facility] Comment on above: Performed By: #### L 501.2450, L100.0100, L500.4050 #### [facility] [address] [place], [address] Urea nitrogen [Mass/Vol] 12 mg/dL Normal 7-18 [facility] Comment on above: Performed By: #### L 501.2450, L100.0100, L500.4050 #### [facility] [address] [place], [address] ED COVID 19 AG BINAXNOWon SARS-CoV-2 (COVID-19) RNA MICHAEL+probe Ql (Unsp spec) ED COVID 19 AG *Negative results from patients with symptom onset beyond seven days should be treated as presumptive and confirmed by a molecular assay if clinically necessary. Negative results should not be used as the sole basis for treatment or for patient management. *Positive results do not differentiate between SARS-CoV and SARS-CoV-2. This test detets both viable and non-viable antigen in the sample and may or may not correlate with viral culture results performed on the same sample. * This test has not been FDA cleared or approved; the test has been authorized by FDA under an Emergency Use Authorization (EAU) for use by laboratories certified under CLIA that meet the requirements to perform moderate, high, or waived complexity tests. Normal Reference Range: Negative Testing performed on [facility] COVID-19 Ag CARD a lateral flow immunoassay. SARS-CoV-2 (COVID 19) Negative Normal [facility] Comment on above: Performed By: #### M 100.610 #### [facility] [address] [place], [address] Emergency Department Summary on 07-19-2020 Emergency Department Summary [facility] Medical Records Department [address] [place] [address] Emergency Department Summary 07/19/20 MR#: [id number] Acct: [id number] Name: HOUSTON RIGGINS Jr. Rep #: [id number] : 1985 35 From: Roberto Cabezas DO PCP: Dr. Newton Herbert MD Status:REG ER History of Present Illness Chief Complaint: Ear Problem Informant: Patient Narrative: 35-year-old male with past medical history of depression presents with abdominal pain, nausea, vomiting, ear pain. States that he has had pain in his right ear over the past 2 weeks. States it is aching in nature. Denies any fever or chills. States he has not been eating and drinking well. States he has felt nauseous. Has been having intermittent aching abdominal pain. Patient had one episode of vomiting today. Nonbloody nonbilious. States he has a lot of stress currently because he is going through divorce. Denies any drugs or alcohol. Patient is a current smoker. Past Medical History - Allergies and Home Meds Allergies/Adverse Reactions: Allergies No Known Allergies Allergy (Verified 07/18/20 23:58) Primary Care Physician: Netwon Herbert MD [Primary Care Provider] - Prior records reviewed: Yes Past Medical History: - - Depression Surgical History: - - diagnostic laparoscopy Lives: Alone Smoking Status: Current every day smoker Alcohol: None Drugs: None Review of Systems General: Denies: Chills, Fever, Sweats Eyes: Denies: Visual changes - bilaterally, Diplopia ENT: Reports: Right ear pain. Denies: Rhinorrhea, Sore throat Cardiovascular: Denies: Chest pain, Palpitations Respiratory: Denies: Dyspnea, Cough, Dyspnea on exertion Gastrointestinal: Reports: Abdominal pain, Nausea, Vomiting. Denies: Diarrhea, Melena, Hematochezia Genitourinary: Denies: Dysuria, Hematuria, Frequency Musculoskeletal: Denies: Back pain, Extremity Pain Skin: Denies: Rash, Wounds Neurological: Denies: Headache, Weakness, Numbness Physical Exam Vital Signs/Narrative: Vital Signs Temp Pulse Resp BP Pulse Ox 07/18/20 23:41 96.9 F L 71 16 124/79 H 98 General: Well nourished, Well developed, No Acute Distress Head: Normocephalic, Atraumatic Eyes: Perrl, EOMI ENT: Moist mucous membranes, No rhinorrhea Neck: Supple, Nontender Cardiovascular: Regular rate, Regular rhythm, No murmurs Respiratory: No distress, CTA bilaterally, Chest nontender Abdomen: Soft, Nondistended, Normal bowel sounds, - - TTP throughout the abdomen. No rebound. Back: Nontender, Normal Inspection Extremities: Nontender, No edema Skin: Normal color, No rash Neurological: Alert, Oriented x3, Cranial nerves II-XII grossly intact, Normal Strength, Normal Sensation Psychological: Normal affect, Normal Mood Diagnostic/Tx/Re-eval Laboratory Data 07/19/20 07/19/20 07/19/20 00:07 00:07 01:00 WBC 5.9 RBC 4.64 Hgb 14.7 Hct 42.3 MCV 91.2 MCH 31.7 MCHC 34.8 RDW Std Deviation 40.2 RDW Coeff of Blaine 12.0 Plt Count 241 MPV 10.3 Immature Gran % (Auto) 0.300 Neut % (Auto) 54.9 Lymph % (Auto) 34.0 [place] % (Auto) 6.3 Eos % (Auto) 3.7 Baso % (Auto) 0.8 Absolute Neuts (auto) 3.3 Absolute Lymphs (auto) 2.01 Nucleated RBC % 0 Sodium 139 Potassium 3.7 Chloride 107 Carbon Dioxide 28.0 Anion Gap 4 L BUN 12 Creatinine 1.17 Estim Creat Clear Calc 82.39 Est GFR (MDRD) Af Amer 91 Est GFR (MDRD) Non-Af 75 BUN/Creatinine Ratio 10.3 Glucose 106 Calcium 8.8 Total Bilirubin 0.30 AST 16 ALT 25 Alkaline Phosphatase 44 L Total Protein 7.1 Albumin 3.9 Globulin 3.2 Albumin/Globulin Ratio 1.2 Lipase 120 Urine Color Yellow Urine Clarity Clear Urine pH 6.0 Ur Specific Mc[place] 1.010 Urine Protein Negative Urine Glucose (UA) Normal Urine Ketones Negative Urine Occult Blood Negative Urine Nitrite Negative Urine Bilirubin Negative Urine Urobilinogen Normal Ur Leukocyte Esterase Negative Urine RBC 0 SEEN Urine WBC 0 SEEN Ur Squamous Epith Cells 0 SEEN Urine Bacteria 0 SEEN Urine Mucus 0 SEEN - Medical Decision Making Patient appears well and nontoxic. Vital signs within normal limits. Benign abdominal exam. Lab work within normal limits. Patient given 1 L of normal saline as well as Zofran. Patient feeling much improved. Was given Toradol for his right ear effusion. Will be given Naprosyn and Flonase for home. Patient will be given ENT follow-up. Coronavirus negative. Asked to return for new or worsening symptoms. Patient agreeable and discharged home in stable condition. Impression: 1. Right middle ear effusion 2. Nausea and vomiting 3. Abdominal pain ED Disposition - Plan for ED Patient: Disposition: Home or Assisted Living Instructions: ED Earache Without Infection (Adult), Abdominal (more content not included)... Normal [facility] Lipaseon 07-19-2020 Lipase [Catalytic activity/Vol] 120 U/L Normal 73-393 [facility] Comment on above: Performed By: #### L 501.2450, L100.0100, L500.4050 #### [facility] [address] [place], [address] Urinalysis, Completeon 07-19 BACTERIA 0 SEEN Normal None Seen [facility] Comment on above: Order Comment: CLEAN CATCH Performed By: #### L 400.0001 #### [facility] [address] [place], [address] EPI,SQUAMOUS 0 SEEN Normal 0-5 [facility] Comment on above: Order Comment: CLEAN CATCH Performed By: #### L 400.0001 #### [facility] [address] [place], [address] Mucus Ql (Urine sed) [address] [facility] Comment on above: Order Comment: CLEAN CATCH Performed By: #### L 400.0001 #### [facility] [address] [place], [address] RBC 0 SEEN Normal 0-5 [facility] Comment on above: Order Comment: CLEAN CATCH Performed By: #### L 400.0001 #### [facility] [address] [place], [address] WBC 0 SEEN Normal 0-5 [facility] Comment on above: Order Comment: CLEAN CATCH Performed By: #### L 400.0001 #### [facility] [address] [place], [address] CNOVon 06-27-2018 CN Office Visit (FAMPWS ) HOUSTON RIGGINS ([id number]) 1985 M Date Time Provider Department 06/27/18 9:40 AM HARMONY BOWEN) FAMPWS During your visit today, we recorded the following information about you: Pulse Respiration Blood pressure Weight 76/minute 12/minute 104/68 67.1 kg YAMIL BOWEN PA-C 06/27/2018 11:41 AM Signed Chief Complaint Patient presents with: Hospital F/U Depression: Patient is has been experiencing depression HPI [place] Riggins is a 33 year old male who presents here today for Hospital Discharge Follow up.. Patient Was in ER for abdominal pain. Was found to have bowel Obstruction. Dr. Humphreys performed Surgery on June 18 and he was discharged from hospital on June 19. He did see Dr. Humphreys in follow up on June 23 with no complications or concerns. Today he denies any concerns in regards to surgery.. Bowels are moving regularly. Some incisional pain but this improving. . New c/o: worsening depression. Has had significant anger and mood swings. Starting to affect his relationships and work life. Over the past few months has been dealing with more stress. States he just has a low tolerance to handle other peoples BS. Sleep: more fatigued recently. And wakes up a lot in middle of night Interest: decrease. Guilt: none Energy: none Concentration: harder to stay focus. Appetite: no changes Psychomotor retardation: yes. But feels like it's more due his marijuana use Suicidal thoughts: none. States that he talks about it but no specific motives. No known family hx of psychiatric illness. Some parental anxiety. Past medical history, appointments, medications, allergies reviewed. Previous Medical History PAST MEDICAL HISTORY Diagnosis Date - Anxiety - Drug abuse (HCC) 06/07/2017 ER Tox screen 06/06/2017 pos for Cocaine, THC, Amphetamines and Alcohol. Previous Surgical History PAST SURGICAL HISTORY Procedure Laterality Date - EXPLORATORY OF ABDOMEN 06/14/2018 - KNEE LEFT OP SURGERY 2008 - PAST SURGICAL HISTORY OF Left [id number] Left tibia/fibula corrective surgery Family History FAMILY HISTORY Problem Relation Age of Onset - Cancer Paternal Grandfather prostate cancer Patient Allergies ALLERGIES Allergen Reactions - Celexa [Citalopram * Other: See Comments Made hard to fall asleep, upset stomach and made him feel like he had to swallow all the time. - Zoloft [Sertraline] Other: See Comments Weird sensation with swallowing and GI upset Current Medications Current Outpatient Medications on File Prior to Visit: oxyCODONE-acetaminoph en (PERCOCET) 5-325 mg tablet Take 1 tablet by mouth every 8 hours as needed. oxycodone HCl (INV OXYCODONE 5 MG) (IRB 17-872) Take 1 tablet by mouth every 6 hours as needed for Breakthrough Pain. predniSONE (DELTASONE) 10 mg tablet Take 40 mg x 3 days, 20 mg x 3 days, 10 mg x 3 days. Take with food, once daily (Patient not taking: Reported on 06/23/2018 ) cyclobenzaprine (FLEXERIL) 10 mg tablet Take 1 tablet by mouth twice daily as needed for Muscle Spasm. (Patient not taking: Reported on 06/23/2018 ) etodolac (LODINE) 400 mg tablet Take 1 tablet by mouth twice daily. (Patient not taking: Reported on 06/23/2018 ) FLUoxetine (PROZAC) 40 mg capsule Take 1 capsule by mouth once daily. (Patient not taking: Reported on 06/23/2018 ) busPIRone (BUSPAR) 15 mg tablet Take 1/2 a tab by mouth twice a day for 2 weeks than one twice a day. (Patient not taking: Reported on 06/23/2018 ) No current facility-administered medications on file prior to visit. Social History Social History Socioeconomic History Marital status: Spouse name: Not on file Number of children: Not on file Years of education: Not on file Highest education level: Not on file Social Needs Financial resource strain: Not on file Food insecurity - worry: Not on file Food insecurity - inability: Not on file Transportation needs - medical: Not on file Transportation needs - non-medical: Not on file Occupational History Not on file Tobacco Use Smoking status: Current Every Day Smoker Packs/day: 1.00 Years: 7.00 Pack years: 7 Quit date: 06/03/2009 Years since quittin.0 Smokeless tobacco: Current User Types: Chew Substance and Sexual Activity Alcohol use: No Comment: Patient indicated that he did drink Drug use: Yes Types: Marijuana Sexual activity: Not on file Other Topics Concerns: Not on file Social History Narrative Not on file Review of Symptoms REVIEW OF SYSTEMS see HPI EXAM: BP 104/68 (BP Site: Left Arm, BP Position: Sitting, BP Cuff Size: Regular Adult) Pulse 76 Resp 12 Wt 67.1 kg (148 lb) BMI 23.18 kg/m? General Appearance: Well appearing, alert, in no acute distress, well-hydrated, well nourished.. PSYCH: Appearance: well dressed well groomed, cooperative and pleasant Behavior: poor eye contact Speech: slow and hesitant Mood: irritable and depressed Affect: constricted Perceptions: none Thought process: perseverative Thought Content: normal Intelligence level: normal Insight: fair Judgment: fair Health Maintenance List ONE PNEUMOVAX PRIOR TO AGE 65 due on 01/29/2004 INFLUENZA(Season Ended) due on 11/27/2018 DTAP,TDAP,TD(3 - Td) due on 09/19/2026 Data reviewed ASSESSMENT/PLAN: 1. Depression, major, recurrent, moderate (HCC) - ICD9: 296.32, ICD10: F33.1 (primary diagnosis) Discussed options. Will start paxil with f/u in 4 weeks. Consider counseling but patient declines this 2. Generalized anxiety disorder - ICD9: 300.02, ICD10: F41.1 As above 3. Intestinal obstruction, unspecified cause, unspecified whether partial or complete (HCC) - ICD9: 560.9, ICD10: K56.609 Resolving. Will discuss his concerns with ?IBS at follow up. Recheck in 1 month sooner prn. YAMIL BOWEN PA-C Referring Provider: SELF [200] Allergies As of Date: 06/27/2018 Noted Allergy Reaction CELEXA (CITALOPRAM HYDROBROMIDE) 02/27/2015 14 - Other: See Comments Comments: Made hard to fall asleep, upset stomach and made him feel like he had to swallow all the time. ZOLOFT (SERTRALINE) 05/09/2015 14 - Other: See Comments Comments: Weird sensation with swallowing and GI upset Date Reviewed: 06/27/2018 Reviewed by: Renetta Bowen - Fully Assessed Reason for Visit: Hospital F/U [57] Depression [32] Cmt: Patient is has been experiencing depression Primary Visit Diagnosis:Depression, major, recurrent, moderate (HCC) [F33.1] Other Visit Diagnoses:Generalized anxiety disorder [F41.1] Intestinal obstruction, unspecified cause, unspecified whether partial or complete (HCC) [K56.609] Order(s):PARoxetine (PAXIL) 20 mg tabletTake 1 tablet by mouth once daily.Disp: 30 tabletRfl: 1 Prescriptions as of 06/27/2018 Sig: PAROXETINE 20 MG TABLET Take 1 tablet by mouth once d* Problem List As Of Date 06/27/2018 Noted Resolved Irritability and anger [R45.4] INVALID FOR* Need for lipid screening [Z13.220] INVALID FOR* Screening for diabetes mellitus (DM) [Z13.1] INVALID FOR* Generalized anxiety disorder [F41.1] INVALID FOR* Pain in both knees [M25.561, M25.562] INVALID FOR* Drug abuse [F19.10] INVALID FOR* More... Depression, major, recurrent, moderate (HCC) [F*INVALID FOR* Prescriptions ordered this encounter Disp Refills Start End PAROXETINE 20 MG TABLET 30 t* 1 06/27/2018 Route: ORAL Sig: Take 1 tablet by mouth once daily. Medications Discontinued During This Encounter oxyCODONE-acetaminoph en (PERCOCET) 5* 06/27/2018 Class: Historical Med Route: ORAL Sig: Take 1 tablet by mouth every 8 hours as needed. Disc: Reason for discontinue is not on file. oxycodone HCl (INV OXYCODONE 5 MG) (* 06/27/2018 Class: Historical Med Route: ORAL Sig: Take 1 tablet by mouth every 6 hours as needed for Breakthrough Pain. Disc: Reason for discontinue is not on file. predniSONE (DELTASONE) 10 mg tablet 21 t* 0 06/09/2017 06/27/2018 Sig: Take 40 mg x 3 days, 20 mg x 3 days, 10 mg x 3 days. Take with food, once daily Patient not taking: Reported on 06/23/2018 Disc: Reason for discontinue is not on file. cyclobenzaprine (FLEXERIL) 10 mg tab* 60 t* 0 06/09/2017 06/27/2018 Route: ORAL Sig: Take 1 tablet by mouth twice daily as needed for Muscle Spasm. Patient not taking: Reported on 06/23/2018 Disc: Reason for discontinue is not on file. etodolac (LODINE) 400 mg tablet 60 t* 1 04/24/2016 06/27/2018 Route: ORAL Sig: Take 1 tablet by mouth twice daily. Patient not taking: Reported on 06/23/2018 Disc: Reason for discontinue is not on file. busPIRone (BUSPAR) 15 mg tablet 60 t* 5 04/08/2016 06/27/2018 Sig: Take 1/2 a tab by mouth twice a day for 2 weeks than one twice a day. Patient not taking: Reported on 06/23/2018 Disc: Reason for discontinue is not on file. FLUoxetine (PROZAC) 40 mg capsule 30 c* 5 04/08/2016 06/27/2018 Route: ORAL Sig: Take 1 capsule by mouth once daily. Patient not taking: Reported on 06/23/2018 Disc: Reason for discontinue is not on file. Disposition: Return in about 1 month (around 07/25/2018). Follow-up and Disposition History Recorded Encounter Status:Closed by YAMIL ROSALES on 06/27/18 [facility] PROGRESSon 06-27-2018 Protein mass conc HNO ID: [id number] Author: Renetta Bowen Service: ? Author Type: Physician Cager Operator Type: Progress Notes Filed: 06/27/2018 11:41 AM Note Text: Chief Complaint Patient presents with: Hospital F/U Depression: Patient is has been experiencing depression HPI [place] Riggins is a 33 year old male who presents here today for Hospital Discharge Follow up.. Patient Was in ER for abdominal pain. Was found to have bowel Obstruction. Dr. Humphreys performed Surgery on June 18 and he was discharged from hospital on June 19. He did see Dr. Humphreys in follow up on June 23 with no complications or concerns. Today he denies any concerns in regards to surgery.. Bowels are moving regularly. Some incisional pain but this improving. . New c/o: worsening depression. Has had significant anger and mood swings. Starting to affect his relationships and work life. Over the past few months has been dealing with more stress. States he just has a low tolerance to handle other peoples BS. Sleep: more fatigued recently. And wakes up a lot in middle of night Interest: decrease. Guilt: none Energy: none Concentration: harder to stay focus. Appetite: no changes Psychomotor retardation: yes. But feels like it's more due his marijuana use Suicidal thoughts: none. States that he talks about it but no specific motives. No known family hx of psychiatric illness. Some parental anxiety. Past medical history, appointments, medications, allergies reviewed. Previous Medical History PAST MEDICAL HISTORY Diagnosis Date - Anxiety - Drug abuse (HCC) 06/07/2017 ER Tox screen 06/06/2017 pos for Cocaine, THC, Amphetamines and Alcohol. Previous Surgical History PAST SURGICAL HISTORY Procedure Laterality Date - EXPLORATORY OF ABDOMEN 06/14/2018 - KNEE LEFT OP SURGERY 2008 - PAST SURGICAL HISTORY OF Left [id number] Left tibia/fibula corrective surgery Family History FAMILY HISTORY Problem Relation Age of Onset - Cancer Paternal Grandfather prostate cancer Patient Allergies ALLERGIES Allergen Reactions - Celexa [Citalopram * Other: See Comments Made hard to fall asleep, upset stomach and made him feel like he had to swallow all the time. - Zoloft [Sertraline] Other: See Comments Weird sensation with swallowing and GI upset Current Medications Current Outpatient Medications on File Prior to Visit: oxyCODONE-acetaminoph en (PERCOCET) 5-325 mg tablet Take 1 tablet by mouth every 8 hours as needed. oxycodone HCl (INV OXYCODONE 5 MG) (IRB 17-872) Take 1 tablet by mouth every 6 hours as needed for Breakthrough Pain. predniSONE (DELTASONE) 10 mg tablet Take 40 mg x 3 days, 20 mg x 3 days, 10 mg x 3 days. Take with food, once daily (Patient not taking: Reported on 06/23/2018 ) cyclobenzaprine (FLEXERIL) 10 mg tablet Take 1 tablet by mouth twice daily as needed for Muscle Spasm. (Patient not taking: Reported on 06/23/2018 ) etodolac (LODINE) 400 mg tablet Take 1 tablet by mouth twice daily. (Patient not taking: Reported on 06/23/2018 ) FLUoxetine (PROZAC) 40 mg capsule Take 1 capsule by mouth once daily. (Patient not taking: Reported on 06/23/2018 ) busPIRone (BUSPAR) 15 mg tablet Take 1/2 a tab by mouth twice a day for 2 weeks than one twice a day. (Patient not taking: Reported on 06/23/2018 ) No current facility-administered medications on file prior to visit. Social History Social History Socioeconomic History Marital status: Spouse name: Not on file Number of children: Not on file Years of education: Not on file Highest education level: Not on file Social Needs Financial resource strain: Not on file Food insecurity - worry: Not on file Food insecurity - inability: Not on file Transportation needs - medical: Not on file Transportation needs - non-medical: Not on file Occupational History Not on file Tobacco Use Smoking status: Current Every Day Smoker Packs/day: 1.00 Years: 7.00 Pack years: 7 Quit date: 06/03/2009 Years since quittin.0 Smokeless tobacco: Current User Types: Chew Substance and Sexual Activity Alcohol use: No Comment: Patient indicated that he did drink Drug use: Yes Types: Marijuana Sexual activity: Not on file Other Topics Concerns: Not on file Social History Narrative Not on file Review of Symptoms REVIEW OF SYSTEMS see HPI EXAM: BP 104/68 (BP Site: Left Arm, BP Position: Sitting, BP Cuff Size: Regular Adult) Pulse 76 Resp 12 Wt 67.1 kg (148 lb) BMI 23.18 kg/m? General Appearance: Well appearing, alert, in no acute distress, well-hydrated, well nourished.. PSYCH: Appearance: well dressed well groomed, cooperative and pleasant Behavior: poor eye contact Speech: slow and hesitant Mood: irritable and depressed Affect: constricted Perceptions: none Thought process: perseverative Thought Content: normal Intelligence level: normal Insight: fair Judgment: fair Health Maintenance List ONE PNEUMOVAX PRIOR TO AGE 65 due on 01/29/2004 INFLUENZA(Season Ended) due on 11/27/2018 DTAP,TDAP,TD(3 - Td) due on 09/19/2026 Data reviewed ASSESSMENT/PLAN: 1. Depression, major, recurrent, moderate (HCC) - ICD9: 296.32, ICD10: F33.1 (primary diagnosis) Discussed options. Will start paxil with f/u in 4 weeks. Consider counseling but patient declines this 2. Generalized anxiety disorder - ICD9: 300.02, ICD10: F41.1 As above 3. Intestinal obstruction, unspecified cause, unspecified whether partial or complete (HCC) - ICD9: 560.9, ICD10: K56.609 Resolving. Will discuss his concerns with ?IBS at follow up. Recheck in 1 month sooner prn. YAMIL BOWEN PA-C Normal [facility] PROGRESSon 06-24-2018 Protein mass conc HNO ID: [id number] Author: Axel Humphreys Service: ? Author Type: Physician Type: Progress Notes Filed: 06/24/2018 5:20 PM Note Text: FOLLOW UP VISIT - POST OP NAME: [place] Holt [facility] NO.: [id number] DATE OF SERVICE: 06/23/2018 : 1985 REFERRING PHYSICIAN: Newton Herbert MD [place] is a patient I am following for presentation of a small bowel obstruction that appeared to be high-grade with no overly significant past surgical history. I performed a exploratory laparotomy with running small bowel and resection of the small bowel diverticula which seemed to be adherent to the posterior left psoas muscle on June 14, 2018. The patient was discharged home on June 18, 2018 The patient currently notes no complaints or obstructive type symptoms. his appetite has been good. he denies fever, chills or abdominal pain. he does note some mild but improving incisional discomfort. VITALS: Blood pressure 110/64, pulse 88, temperature 36.7 ?C (98 ?F), temperature source Temporal, resp. rate 17, weight 66.4 kg (146 lb 6.4 oz), SpO2 99 %. On examination, his incisions are intact. He has normoactive bowel sounds. His bryson removed and Steri-Strips were applied Assessment IMPRESSION: Status post exploratory laparotomy with resection of small bowel diverticulum for small bowel obstruction PLAN: If the patient notes any problems or signs of wound infections, he should contact me immediately. Diagnoses: (K56.609) Small bowel obstruction (HCC) (primary encounter diagnosis) Return to Clinic: The patient is instructed to follow-up with me as needed. Axel Humphreys MD [facility] CNOVon 06-23-2018 CNOV Office Visit (GENSWS ) HOUSTON RIGGINS ([id number]) 1985 Date Time Provider Department 06/23/18 2:30 PM AXEL HUMPHREYS During your visit today, we recorded the following information about you: Temperature Pulse Respiration Blood pressure 98 degrees 88/minute 17/minute 110/64 Weight 66.4 kg Axel Humphreys MD 06/24/2018 5:20 PM Signed FOLLOW UP VISIT - POST OP NAME: [place] Riggins [facility] NO.: [id number] DATE OF SERVICE: 06/23/2018 : 1985 REFERRING PHYSICIAN: MD [place] Parikh is a patient I am following for presentation of a small bowel obstruction that appeared to be high-grade with no overly significant past surgical history. I performed a exploratory laparotomy with running small bowel and resection of the small bowel diverticula which seemed to be adherent to the posterior left psoas muscle on June 14, 2018. The patient was discharged home on June 18, 2018 The patient currently notes no complaints or obstructive type symptoms. his appetite has been good. he denies fever, chills or abdominal pain. he does note some mild but improving incisional discomfort. VITALS: Blood pressure 110/64, pulse 88, temperature 36.7 ?C (98 ?F), temperature source Temporal, resp. rate 17, weight 66.4 kg (146 lb 6.4 oz), SpO2 99 %. On examination, his incisions are intact. He has normoactive bowel sounds. His bryson removed and Steri-Strips were applied Assessment IMPRESSION: Status post exploratory laparotomy with resection of small bowel diverticulum for small bowel obstruction PLAN: If the patient notes any problems or signs of wound infections, he should contact me immediately. Diagnoses: (K56.609) Small bowel obstruction (HCC) (primary encounter diagnosis) Return to Clinic: The patient is instructed to follow-up with me as needed. Axel Humphreys MD Referring Provider: [facility] [[id number]] Allergies As of Date: 06/23/2018 Noted Allergy Reaction CELEXA (CITALOPRAM HYDROBROMIDE) 02/27/2015 14 - Other: See Comments Comments: Made hard to fall asleep, upset stomach and made him feel like he had to swallow all the time. ZOLOFT (SERTRALINE) 05/09/2015 14 - Other: See Comments Comments: Weird sensation with swallowing and GI upset Date Reviewed: 06/23/2018 Reviewed by: Tram Kelly RN - Fully Assessed Reason for Visit: Post Op [174] Cmt: small bowel diverticulectomy-expl . lap Reason For Visit History Recorded Primary Visit Diagnosis:Small bowel obstruction (HCC) [K56.609] Prescriptions as of 06/23/2018 Sig: OXYCODONE-ACETAMINOPH EN 5 MG-* Take 1 tablet by mouth every * INV OXYCODONE 5 MG TABLET (IR* Take 1 tablet by mouth every * PREDNISONE 10 MG TABLET Take 40 mg x 3 days, 20 mg x * Patient not taking: Reported on 06/23/2018 CYCLOBENZAPRINE 10 MG TABLET Take 1 tablet by mouth twice * Patient not taking: Reported on 06/23/2018 ETODOLAC 400 MG TABLET Take 1 tablet by mouth twice * Patient not taking: Reported on 06/23/2018 FLUOXETINE 40 MG CAPSULE Take 1 capsule by mouth once * Patient not taking: Reported on 06/23/2018 BUSPIRONE 15 MG TABLET Take 1/2 a tab by mouth twice* Patient not taking: Reported on 06/23/2018 Problem List As Of Date 06/23/2018 Noted Resolved Irritability and anger [R45.4] INVALID FOR* Need for lipid screening [Z13.220] INVALID FOR* Screening for diabetes mellitus (DM) [Z13.1] INVALID FOR* Generalized anxiety disorder [F41.1] INVALID FOR* Pain in both knees [M25.561, M25.562] INVALID FOR* Drug abuse [F19.10] INVALID FOR* More... Encounter Status:Closed by AXEL HUMPHREYS MD on 06/24/18 Normal [facility] CNCOon 06-20-2018 CNCO Letter Text Normal [facility] PROGRESSon 06-16-2018 Protein mass conc HNO ID: [id number] Author: Axel Humphreys Service: ? Author Type: Physician Type: Progress Notes Filed: 06/16/2018 1:07 PM Note Text: OPERATIVE NOTATION FOR [facility] SURGICAL PROCEDURE. June 14, 2018 [place] Riggins 1985 [id number] male PROCEDURE: Laparotomy - Resection of Small Bowel - [address] SURGEON: Luis Humphreys M.D. FACS SUBSTANCE ABUSE TECHNICIAN: None DEPT: W PROVIDER: [id number] Humphreys MD POS: [id number] DIAGNOSIS: (F19.10) Drug abuse (HCC) (primary encounter diagnosis) (K56.609) Small bowel obstruction (HCC) ASA CLASS: 3E - severe emergency FINDINGS: COMPLICATIONS: None PMHx - PAST MEDICAL HISTORY Diagnosis Date - Anxiety - Drug abuse (HCC) 06/07/2017 ER Tox screen 06/06/2017 pos for Cocaine, THC, Amphetamines and Alcohol. COMORBIDITIES - Chronic Alcohol Abuse, Chronic Drug Abuse and Smoking/Tobacco Post Op Occurrences - None Wound Classification - Clean Contaminated Operative note dictated in the [facility] dictation system. Axel Humphryes MD Normal [facility] CNCOon 06-07-2018 CNCO Letter Text Normal [facility] Vital Signs Date Time Vital Sign Value Performing Clinician Facility 10-03-2020 14:00-0400 Diastolic blood pressure 57 mm[Hg] Text Entry [facility] 10-03-2020 14:00-0400 Heart rate 97 /min Text Entry [facility] 10-03-2020 14:00-0400 Respiratory rate 16 /min Text Entry [facility] 10-03-2020 14:00-0400 SaO2% (BldA) [Mass fraction] 98 % Text Entry [facility] 10-03-2020 14:00-0400 Systolic blood pressure 100 mm[Hg] Text Entry [facility] 10-03-2020 11:05-0400 Body temperature 97.88 [degF] Text Entry [facility] 10-03-2020 11:05-0400 Body weight 70 kg Text Entry [facility] Encounters Encounter Date Encounter Type Care Provider Facility Start: 01-29-2025 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 Reyna Ayse Wesotn acility:[facility] Start: 10-03-2020 End: 10-03-2020 Emergency department patient visit Garcia Jensen [facility] Emergency 15 Start: 06-27-2018 End: 06-28-2018 Patient encounter procedure YAMIL BOWEN (PA) [facility] Start: 06-23-2018 End: 06-27-2018 Patient encounter procedure AXEL HUMPHREYS [facility] Procedures Date Procedure Procedure Detail Performing Clinician Start: 10-03-2020 End: 10-03-2020 EKG impression Garcia Jensen Payers Date Payer Category Payer Policy ID Unknown ANTHEM\ANTHEM HMP Social History Date Type Detail Facility [facility] Tobacco smoking consumption unknown [facility] Summary Purpose Family History No Family History Records FoundNo Family History Records FoundNo Family History Records FoundNo Family History Records Found Advance Directives No Advanced Directives Records FoundNo Advanced Directives Records FoundNo Advanced Directives Records FoundNo Advanced Directives Records Found Procedure Findings Note Operative Note (Enc) (GENSWS ) Progress Notes: Axel Humphreys MD 06/16/2018 1:07 PM Signed OPERATIVE NOTATION FOR [facility] SURGICAL PROCEDURE. June 14, 2018 [place] Yanet Gemma 1985 [id number] male PROCEDURE: Laparotomy - Resection of Small Bowel - 51172 SURGEON: Luis Humphreys M.D. FACS SUBSTANCE ABUSE TECHNICIAN: None DEPT: [facility] PROVIDER: [email or web address] Humphreys MD POS: [id number] DIAGNOSIS: (F19.10) Drug abuse (HCC) (primary encounter diagnosis) (K56.609) Small bowel obstruction (HCC) ASA CLASS: 3E - severe emergency FINDINGS: COMPLICATIONS: None PMHx - PAST MEDICAL HISTORY Diagnosis Date - Anxiety - Drug abuse (HCC) 06/07/2017 ER Tox screen 06/06/2017 pos for Cocaine, THC, Amphetamines and Alcohol. COMORBIDITIES - Chronic Alcohol Abuse, Chronic Drug Abuse and Smoking/Tobacco Post Op Occurrences - None Wound Classification - Clean Contaminated Operative note dictated in the [facility] dict (more content not included)... Additional Source Comments (unrecognized sect ion and content) No Status Records FoundNo Status Records FoundNo Status Records FoundNo Status Records Found INFORMATION SOURCE (unrecogn ized section and content) DATE CREATED AUTHOR 06/30/2018 [facility] DATE CREATED AUTHOR AUTHOR'S ORGANIZ ATION 10/10/2020 [facility] DATE CREATED AUTHOR AUTHOR'S ORGANIZ ATION 05/21/2021 [facility] DATE CREATED AUTHOR AUTHOR'S ORGANIZ ATION 01/31/[address] [facility] [place] <item> Privacy Markings (unrecogniz ed section and content) Section Author: Camila Lora PROHIBITION ON REDISCLOSURE OF CONFIDENTIAL INFORMATION This notice accompanies a disclosure of information concerning a client made to you with the consent of such client. FOR RECORDS PERTAINING TO PATIENTS WHO ARE OR HAVE BEEN ENROLLED IN A CHEMICAL DEPENDENCY/SUBSTANCEABUSE PROGRAM, SOME INFORMATION MAY BE OMITTED. This clinical summary was aggregated from multiple sources. Caution should be exercised in using it in the provision of clinical care. This summary normalizes information from multiple sources, and as a consequence, information in this document may materially change the coding, format and clinical context of patient data. In addition, data may be omitted in some cases. CLINICAL DECISIONS SHOULD BE BASED ON THE PRIMARY CLINICAL RECORDS. [employer] provides no warranty or guarantee of the accuracy or completeness of information in this document.
[2025-02-24 10:01] LABS: AST(SGOT) 27 U/L (<=37); Alanine Aminotransfer ALT/SGPT 17 U/L (<=46); Albumin, Serum 4.4 g/dL (3.5-5.0); Alkaline Phosphatase 61 U/L (40-129); Anion Gap 12 (5-15); BUN 11 mg/dL (4-19); BUN/Creat Ratio 9.8 RATIO (10-20); Calcium,Total 9.4 mg/dL (7.6-11.0); Carbon Dioxide 22.8 mmol/L (21.0-32.0); Chloride 102 mmol/L (98-108); Estimated Creatinine Clearance 81.24 ml/min (50-250); Globulin 2.8 g/dL (2.2-4.2); Glucose 128 mg/dL (70-99); Lipase 53 U/L (13-75); Potassium 4.2 mmol/L (3.3-5.1)
[2025-02-24 10:38] VITALS: BP 112/57; PULSE 71; RESP 17; TEMP 36.8; O2SAT 98
== END 2025-02-24 10:55 | disposition home or self-care (01) ==
PROVIDERS: Emergency Provider Emergency Medicine; PCP Family Medicine; Visit Provider Emergency Medicine
DX: R10.11 Right upper quadrant pain (principal); R11.2 Nausea with vomiting, unspecified; F17.220 Nicotine dependence, chewing tobacco, uncomplicated
CPT/HCPCS: 74177; 80053; 81001; 83690; 85025; 96361; 96374; 99283; Q9967; A4216